=== PATIENT | male | born 1930 | race African-American/Black ===

== ENCOUNTER 2017-12-05 14:54 | Outpatient (CLI) | payer MEDICARE, MEDICAID | END 2017-12-05 14:55 | disposition home or self-care (01) | LOC: BICULT 14:54 | PROVIDERS: ATTEND Physician Assistant | DX: R60.0 Localized edema (principal) ==

== ENCOUNTER 2017-12-16 09:27 | Inpatient (IN) | payer MEDICARE, MEDICAID ==
[2017-12-16 10:00] LABS: #Eosinphils 0.1 thou/uL (0.0-0.7); #Lymphocytes 1.4 thou/uL (1.20-3.40); #Monocytes 1.2 thou/uL (0.11-0.59); #Neutrophils 5.4 thou/uL (1.40-6.50); %Basophils 0.3 % (0.0-1.0); %Eosinophils 0.9 % (0.0-10.0); %Monocytes 14.5 % (0.0-10.0); %Neutrophils 67.3 % (42.0-75.0); Hemoglobin 14.8 g/dL (14.0-18.0); Mean Corpuscular HGB CONC 33.7 g/dL (32.0-36.0); Mean Corpuscular Hemoglobin 32.9 pg (27.0-31.0); Mean Corpuscular Volume 97.4 fl (80.0-94.0); Mean Platelet Volume 7.4 fL (7.4-10.4); Platelet Count 271 thou/uL (130-400); RBC Distribution Width 11.5 % (11.5-14.5); Red Blood Cell (RBC) Count 4.52 mill/uL (4.70-6.10)
[2017-12-16 10:21] LABS: ALT (SGPT) 15 U/L (8-55); AST (SGOT) 17 U/L (5-34); Albumin 4.2 g/dL (3.4-4.8); Alkaline Phosphatase 88 U/L (40-150); Anion Gap 16 mmol/L (10-20); BUN (Urea Nitrogen) 40 mg/dL (8.4-25.7); Bilirubin, Total 0.8 mg/dL (0.2-1.2); CK (CPK) 108 U/L (30-200); Calc. Creatinine Clearance 0 mL/min (70-130); Calcium 9.3 mg/dL (7.8-10.44); Carbon Dioxide 22 mmol/L (23-31); Chloride 104 mmol/L (98-107); Estimated GFR-MDRD 8; Globulin 3.4 g/dL (2.4-3.5); Glucose 169 mg/dL (83-110); Lipase 43 U/L (8-78); Potassium 3.2 mmol/L (3.5-5.1); Protein, Total 7.6 g/dL (5.8-8.1); Sodium 139 mmol/L (136-145)
[2017-12-16 10:24] LABS: CKMB 2.5 ng/mL (0-6.6); Troponin I 0.015 ng/mL (< 0.028)
--- NOTE | 2017-12-16 11:36 | RAD ---
PORTABLE CHEST: Date: 12/16/17 HISTORY: Weakness, loss of appetite. COMPARISON: 03/03/17 study. FINDINGS: Heart size is within normal limits. There are postop sternotomy changes. The lungs are clear of infil trates. There are no signs of failure. 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 IMPRESSION: No active intrathoracic disease. Stable exam. POS: FAIZAN
[2017-12-16 13:06] LABS: ALT (SGPT) 14 U/L (8-55); AST (SGOT) 17 U/L (5-34); Alkaline Phosphatase 83 U/L (40-150); Anion Gap 15 mmol/L (10-20); BUN (Urea Nitrogen) 40 mg/dL (8.4-25.7); Bilirubin, Total 0.7 mg/dL (0.2-1.2); Calc. Creatinine Clearance 0 mL/min (70-130); Calcium 8.8 mg/dL (7.8-10.44); Carbon Dioxide 22 mmol/L (23-31); Chloride 107 mmol/L (98-107); Estimated GFR-MDRD 9; Globulin 3.1 g/dL (2.4-3.5); Glucose 194 mg/dL (83-110); Potassium 3.3 mmol/L (3.5-5.1); Protein, Total 7.1 g/dL (5.8-8.1); Sodium 141 mmol/L (136-145)
[2017-12-16] MEDS ORDERED: traMADol HCl 50 MG TAB PO PRN (13:11)
[2017-12-16] MEDS ORDERED: Ondansetron HCl/PF 4 MG/2 ML Vial IVP PRN (13:11)
[2017-12-16] MEDS ORDERED: Acetaminophen 325 MG TAB PO PRN (13:11)
[2017-12-16] MEDS ORDERED: Zolpidem Tartrate 5 MG TAB PO PRN (13:11)
[2017-12-16 13:22] LABS: Troponin I 0.027 ng/mL (< 0.028)
[2017-12-16] MEDS ORDERED: Dextrose 50% Abboject 50 ML SYRINGE SLOW IVP PRN (13:25)
[2017-12-16] MEDS ORDERED: HumaLOG 300 UNITS/3 ML VIAL SC PRN (13:25)
[2017-12-16] MEDS ORDERED: Dextrose 5% in Water 1,000 ML IV PRN (13:25)
--- NOTE | 2017-12-16 13:25 | PDOC.EVN ---
Event Note - Event Note Event Note: H&P #[id number]
--- NOTE | 2017-12-16 15:24 | CT ---
CT OF ABDOMEN AND PELVIS PERFORMED WITHOUT CONTRAST ENHANCEMENT: Date: 12/16/17 HISTORY: Abdominal pain. Loss of appetite. Patient being treated with antibiotics related to prostate. No IV c ontrast administered due to low GFR. COMPARISON: 04/06/14 study. FINDINGS: The lung bases show chronic interstitial changes in the left base. No pulmonary nodules. A hypodensity within the right lobe of the liver is stable and most compatible with a tiny cyst. Ther e are other tiny subcentimeter hypodensities within the left lobe, also statistically most likely sma ll cysts. The spleen, pancreas, and gallbladder regions appear unremarkable. Right and left adrenal glands are normal. Hypodensities involving both kidneys are compatible with cy sts. These appear stable. There are vascular calcifications noted. No definite renal calculi. No sign ificant periaortic or mesenteric adenopathy. There are moderate atherosclerotic changes of the aorta. 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 This is a stable finding. There is some mid distention of the stomach and there is some fluid within the small bowel and colon, without evidence of any wall thickening. This still could indicate a mild enteritis. CT of pelvis was performed without contrast enhancement. The appendix is normal. No adenopathy, mass, or free fluid. Review of osseous structures showed some arthritic changes of the spine and hips. IMPRESSION: 1. Some minimal fluid-filled distention of some of the small bowel, and also some fluid within the c olon. I cannot exclude this representing a mild enterocolitis. Clinical correlation would be recommen ded. 2. Moderate atherosclerotic change. 3. Stable hepatic and renal cysts. 4. Normal appendix. POS: [facility]
[2017-12-16 15:48] VITALS: BMI 21.0
--- NOTE | 2017-12-16 16:01 | HP ---
DATE OF ADMISSION: 12/16/2017 CHIEF COMPLAINT: Not feeling well. HISTORY OF PRESENT ILLNESS: This is an 87-year-old male who states that he was recently started on F kalyan and started taking approximately 4-5 days ago. The patient states that this morning he does fe lt really bad, was apparently very dizzy and decided to call the ambulance who brought him to the ER. The patient was found to have a creatinine of 7.73, on repeat was 7.23, and the decision was made t o admit the patient to the Internal Medicine team. His last creatinine was approximately in August was 1.7. The patient stated that he felt weak and dizzy, but did not fall. The patient otherwise d enies any other symptoms or complaints. No nausea, vomiting, diarrhea, constipation, chest pain, fev ers, or shortness of breath. Patient is accompanied by his [id number] and son. The patient is alert and oriented x2, so provides a very poor history. The patient's son as well is not the main ca regiver and is not aware of the exact details of patient's history; however, does state that at [facility], the patient is usually confused and not fully alert and oriented x3 at all times. The patient o therwise states that he follows up with a physician as outpatient, but cannot recall who they are. D oes bring a note from his family practice doctor, which shows that the patient takes Flomax, which wa s started recently for BPH, but also takes a multivitamin, Protonix, atorvastatin, ramipril, Coreg, P lavix, Motrin, glipizide, isosorbide dinitrate, nifedipine, and ranolazine. ALLERGIES: ASPIRIN. PAST MEDICAL HISTORY: Diabetes mellitus type 2, CKD, hypertension, hyperlipidemia, coronary artery b ypass grafting x4, coronary artery disease, anxiety and diabetic neuropathy. SOCIAL HISTORY: Denies any smoking or drinking. FAMILY HISTORY: The patient states that he is aware of any contributing family history. REVIEW OF SYSTEMS: All systems reviewed. Pertinent positive in the HPI, otherwise negative. PHYSICAL EXAMINATION: VITAL SIGNS: Blood pressure is 120/46, heart rate is 85, temperature is 98, respiratory rate is 18, pulse ox is 98% on room air. GENERAL: Lying in bed, in no acute distress. HEENT: Pupils equal, round, react to light and accommodation. Extraocular muscles intact. Oral cav ity does appear to be a little bit dry, nontender, mobile, thyroid appreciated. NECK: No lymphadenopathy in the cervical chains. CARDIOVASCULAR: Regular rate and rhythm. S1 and S2. No murmurs, rubs or gallops appreciated. PULMONARY: Clear to auscultation bilaterally, aerating well. No increase in AP diameter. ABDOMEN: Positive bowel sounds, soft, nontender. No rebound, guarding noted. EXTREMITIES: 2+ peripheral pulses. No loss of sensory function. Moving all extremities. NEUROLOGIC: Cranial nerves II-XII intact. Alert and oriented x2; however, answering some questions appropriately. The patient believes that it is 2012. LABORATORY DATA: CBC within normal limits. Basic metabolic panel shows potassium of 3.3, BUN of 40, and creatinine of 7.73, on repeat was 7.23, otherwise rest of CMP is within normal limits. CT scan of the abdomen has been ordered and is pending. ASSESSMENT: 1. Acute renal failure on chronic kidney disease. 2. Coronary artery disease. 3. Hypertension. 4. Hypokalemia. 5. Diabetes mellitus type 2. 6. Hyperlipidemia. 7. Diabetic neuropathy. 8. Secondary hyperparathyroidism of renal disease. PLAN: We will admit the patient to telemetry inpatient. Consult Nephrology. Get a renal ultrasound and bladder scan. The patient has had a Raman placed of more than 50 mL in the bladder. The patien t has received a 1 liter bolus in the ER. We will also obtain an echocardiogram to evaluate for vent ricular function, specifically the right ventricular function and check for any left or right-sided h eart failure. At this point in time, we will start the patient on normal saline at 50 mL an hour. S tart the patient on a diabetic diet. I will continue home medications as appropriate. Place patient on a sliding scale as well as a basal bolus insulin for his diabetes and check an A1c. SCDs to be u sed as venous thrombosis prophylaxis and Pepcid to be used for ulcer prophylaxis. The patient's son is at bedside who states that he will be main decision maker. After discussion, the patient is to re main FULL CODE. Otherwise, at this point in time, no other abnormalities noted concerning for dialys is. Nephrology will be consulted. Electrolyte chaudhari, the potassium at this point in time will not be replaced. We will provide the patient with a diet and repeat BMP tomorrow. The patient does not palacios ve an anion gap acidosis and significantly elevated bicarbonate levels are at 22, we will accept it. The patient otherwise understands and agrees with this plan. Again, the case and plan discussed wit h the patient and family at length. They understand and agree with this plan.
[2017-12-16] MEDS: Sodium Chloride 0.9% 1,000 ML IV SCH (16:04)
[2017-12-16 16:30] LABS: Troponin I 0.021 ng/mL (< 0.028)
--- NOTE | 2017-12-16 18:21 | ULT ---
RENAL ULTRASOUND: History: Acute renal failure. Technique: Multiple longitudinal and transverse images of the kidneys and bladder were obtained using a multihertz curvilinear transducer. FINDINGS: Real-time and color flow images demonstrate both kidneys to be visualized. The right kidney measures 10.7 and the left kidney 11.7 cm from [id number]. Both kidneys contain multiple hypoechoic lesions compatible with cysts. The largest in the right kidney measures 1.7 x 1.0 x 1.7 cm while the largest on the left measures 3.3 x 2.9 x 2.8 cm. No evidence of hydronephrosis seen. The urinary bladder is contracted due to an indwelling Raman catheter. IMPRESSION: Bilateral renal cysts without evidence of masses or lesions or evidence of hydronephrosis. The urinar y bladder is decompressed. POS: NATHALIE
[2017-12-16 18:22] LABS: Bilirubin Moderate (Negative); Blood, Urine Large (Negative); Glucose, Urine (Dipstick) Negative (Negative); Leukocyte Negative (Negative); Nitrite Negative (Negative); Protein, Urine (Dipstick) 100 mg/dL (Neg-Trace); Urobilinogen 0.2 mg/dL (0.2-1.0); pH, Urine 5.5 (5.0-9.0)
[2017-12-16 18:23] LABS: Clarity Cloudy (Clear)
[2017-12-16 18:24] LABS: Specific Gravity, Urine 1.024 (1.002-1.036)
[2017-12-16 18:25] LABS: Pathc Cast-AUWi Flag 42.97 (0-2.49); Yeast-AUWi Flag 29.6 (0-25.0)
[2017-12-16 18:28] LABS: Crystals/HPF 3+ AMORPH URATES HPF (Negative)
[2017-12-16 18:29] LABS: Bacteria/HPF None Seen HPF (None Seen)
[2017-12-16 18:30] LABS: Hyaline Casts/LPF 0-3 HYALINE CAST LPF (0-3 Hyaline); Other Casts/LPF None Seen LPF (0-3 Hyaline); Renal Epithelial None Seen HPF (0-3); Transitional Epithelial NONE SEEN HPF (0-3); Yeast-All Forms None Seen HPF (None Seen)
[2017-12-16] MEDS ORDERED: Insulin Glargine 5 UNITS in Pre-Filled Syringe 1 EACH SC SCH (21:00)
[2017-12-16] MEDS: Carvedilol 25 MG TAB PO SCH (21:31)
[2017-12-16] MEDS: Famotidine 20 MG TAB PO SCH (21:32)
[2017-12-16] MEDS: Insulin Glargine 5 UNITS in Pre-Filled Syringe 1 EACH SC SCH (21:32)
[2017-12-17 05:09] LABS: #Eosinphils 0.1 thou/uL (0.0-0.7); #Lymphocytes 1.1 thou/uL (1.20-3.40); #Monocytes 1.1 thou/uL (0.11-0.59); #Neutrophils 5.1 thou/uL (1.40-6.50); %Basophils 0.4 % (0.0-1.0); %Eosinophils 0.7 % (0.0-10.0); %Lymphocytes 14.6 % (21.0-51.0); %Monocytes 14.5 % (0.0-10.0); %Neutrophils 69.8 % (42.0-75.0); Hemoglobin 15.6 g/dL (14.0-18.0); Mean Corpuscular HGB CONC 33.1 g/dL (32.0-36.0); Mean Corpuscular Hemoglobin 32.4 pg (27.0-31.0); Mean Corpuscular Volume 97.8 fl (80.0-94.0); Mean Platelet Volume 7.5 fL (7.4-10.4); Platelet Count 290 thou/uL (130-400); RBC Distribution Width 11.8 % (11.5-14.5); Red Blood Cell (RBC) Count 4.81 mill/uL (4.70-6.10); White Blood Cell (WBC) Count 7.3 thou/uL (4.8-10.8)
[2017-12-17 05:31] LABS: Anion Gap 18 mmol/L (10-20); BUN (Urea Nitrogen) 43 mg/dL (8.4-25.7); Calc. Creatinine Clearance 5 mL/min (70-130); Calcium 8.9 mg/dL (7.8-10.44); Carbon Dioxide 17 mmol/L (23-31); Chloride 108 mmol/L (98-107); Estimated GFR-MDRD 8; Glucose 131 mg/dL (83-110); Potassium 3.4 mmol/L (3.5-5.1); Sodium 140 mmol/L (136-145)
[2017-12-17] MEDS: Carvedilol 25 MG TAB PO SCH ×2 (08:34→21:13)
[2017-12-17] MEDS: Famotidine 20 MG TAB PO SCH ×2 (08:35→21:13)
[2017-12-17] MEDS: Clopidogrel Bisulfate 75 MG TAB PO SCH (08:35)
[2017-12-17] MEDS: NIFEdipine XL 60 MG TAB PO SCH (08:36)
[2017-12-17] MEDS: Sodium Chloride 0.9% 1,000 ML IV SCH (08:37)
[2017-12-17] MEDS ORDERED: ISOSORBIDE MONONITRATE 60 MG PO SCH (09:00)
[2017-12-17] MEDS ORDERED: NIFEdipine XL 30 MG TAB PO SCH (09:00)
--- NOTE | 2017-12-17 11:02 | PDOC.PN ---
- Subjective Encounter Start Date: 12/17/17 Encounter Start Time: 11:50 Subjective: Patient reports minial UOP overnight in [place]. No other complaints. - Objective MAR Reviewed: Yes Vital Signs & Weight: Vital Signs (12 hours) Temp Pulse Resp BP Pulse Ox 12/17/17 08:36 83 12/17/17 08:00 98.4 F 83 20 98 12/17/17 07:45 98.4 F 83 20 166/72 H 98 12/17/17 03:45 99.0 F 86 20 135/61 100 12/17/17 00:00 97.6 F 88 21 H 140/62 100 Weight Weight 114 lb 6.719 oz I&O: 12/16/17 12/17/17 12/18/17 06:59 06:59 06:59 Intake Total 1336 Output Total 17 Balance 1319 Result Diagrams: 12/17/17 04:27 12/17/17 04:27 Additional Labs: Accuchecks 12/17/17 12/16/17 12/16/17 05:59 21:30 16:36 POC Glucose 120 H 147 H 140 H Phys Exam - Physical Examination Constitutional: NAD HEENT: moist MMs Respiratory: no wheezing, no rales, no rhonchi Cardiovascular: RRR, no significant murmur Gastrointestinal: soft, non-tender, positive bowel sounds Neurological: non-focal, moves all 4 limbs Psychiatric: normal affect, A&O x 3 Dx/Plan (1) Acute on chronic renal failure Code(s): N17.9 - ACUTE KIDNEY FAILURE, UNSPECIFIED; N18.9 - CHRONIC KIDNEY DISEASE, UNSPECIFIED Status: Acute Qualifiers: Chronic kidney disease stage: stage 3 (moderate) Comment: not improving with fluids, creatinine remains above 7, Dr. Wade following (2) HTN (hypertension) Code(s): I10 - ESSENTIAL (PRIMARY) HYPERTENSION Status: Chronic (3) Coronary artery disease Code(s): I25.10 - ATHSCL HEART DISEASE OF [place] CORONARY ARTERY W/O ANG PCTRS Status: Chronic (4) Diabetes mellitus type 2 in nonobese Code(s): E11.9 - TYPE 2 DIABETES MELLITUS WITHOUT COMPLICATIONS Status: Chronic (5) Hyperlipidemia Code(s): E78.5 - HYPERLIPIDEMIA, UNSPECIFIED Status: Chronic (6) Hypokalemia Code(s): E87.6 - HYPOKALEMIA Status: Acute Comment: mild - Plan cont current plan of care Patient will likely need dialysis * . - Discharge Day Encounter end time: 12:00
--- NOTE | 2017-12-17 11:30 | PRG ---
DATE OF SERVICE: 12/17/2017 SUBJECTIVE: An 87-year-old gentleman being seen for acute kidney injury. The patient denies any rebecca sea, vomiting or chest pain. PHYSICAL EXAMINATION: GENERAL: Patient is awake, alert. VITAL SIGNS: Afebrile, pulse 80, breathing 16, blood pressure 135/61. GENERAL APPEARANCE AND MENTAL STATUS: Fair. HEAD/NECK: Normocephalic. Atraumatic. EYES: EOMI. No deformity. EARS: Clear. No ulcers. NOSE: Intact. No lesions. MOUTH: Clear. No discharge. THROAT: Clear. No exudate. LUNGS: Clear. No crackles. CARDIAC: S1, S2. No rub. ABDOMEN: Benign. BS+. GENITALIA/RECTUM: Raman absent. BACK/EXTREMITIES: Edema 0+ Ulcer- NEUROLOGICAL: Alert and motor intact. SKIN: Rash- Bruise- LYMPHATICS: Edema- Ulcer- LABORATORY DATA: Showing hemoglobin 15.6, creatinine 7.6. ASSESSMENT AND RECOMMENDATIONS: 1. Acute kidney injury with chronic kidney disease due to decreased effective arterial blood volume and history of underlying chronic kidney disease, no hydronephrosis. Follow renal function serially. Continue hydration. 2. Anemia, stable. 3. Metabolic acidosis, stable. 4. Hypokalemia, stable. No indication for dialysis at this time. The patient remains anuric.
[2017-12-17] MEDS: Insulin Glargine 5 UNITS in Pre-Filled Syringe 1 EACH SC SCH (21:14)
[2017-12-18 05:08] LABS: #Lymphocytes 1.2 thou/uL (1.20-3.40); #Monocytes 0.9 thou/uL (0.11-0.59); #Neutrophils 5.6 thou/uL (1.40-6.50); %Basophils 0.2 % (0.0-1.0); %Eosinophils 0.5 % (0.0-10.0); %Lymphocytes 15.1 % (21.0-51.0); %Monocytes 11.9 % (0.0-10.0); %Neutrophils 72.3 % (42.0-75.0); Hemoglobin 14.3 g/dL (14.0-18.0); Mean Corpuscular HGB CONC 32.5 g/dL (32.0-36.0); Mean Corpuscular Hemoglobin 31.8 pg (27.0-31.0); Mean Corpuscular Volume 97.6 fl (80.0-94.0); Mean Platelet Volume 7.1 fL (7.4-10.4); Platelet Count 322 thou/uL (130-400); RBC Distribution Width 11.7 % (11.5-14.5); Red Blood Cell (RBC) Count 4.51 mill/uL (4.70-6.10); White Blood Cell (WBC) Count 7.8 thou/uL (4.8-10.8)
[2017-12-18 05:18] LABS: Anion Gap 18 mmol/L (10-20); BUN (Urea Nitrogen) 55 mg/dL (8.4-25.7); Calc. Creatinine Clearance 5 mL/min (70-130); Calcium 8.7 mg/dL (7.8-10.44); Carbon Dioxide 11 mmol/L (23-31); Chloride 113 mmol/L (98-107); Estimated GFR-MDRD 8; Glucose 159 mg/dL (83-110); Potassium 3.8 mmol/L (3.5-5.1); Sodium 138 mmol/L (136-145)
[2017-12-18] MEDS ORDERED: Calcium Carbonate 500 MG ChewTAB PO SCH (05:45)
[2017-12-18] MEDS: Sodium Chloride 0.9% 1,000 ML IV SCH (05:46)
[2017-12-18] MEDS: NIFEdipine XL 60 MG TAB PO SCH (09:03)
[2017-12-18] MEDS: Clopidogrel Bisulfate 75 MG TAB PO SCH (09:05)
[2017-12-18] MEDS: Carvedilol 25 MG TAB PO SCH ×2 (09:06→20:17)
--- NOTE | 2017-12-18 09:41 | PDOC.PN ---
- Subjective Encounter Start Date: 12/18/17 Encounter Start Time: 11:00 Subjective: Patient reports some LISA burning with radiation substernally after -: dinner last night. Happens frequently at home and better with a lot of TUMS -: , but only got a couple here last night so still with symptoms. Burping. - Objective MAR Reviewed: Yes Vital Signs & Weight: Vital Signs (12 hours) Temp Pulse Resp BP BP Pulse Ox 12/18/17 09:03 76 122/59 L 12/18/17 08:00 97.8 F 76 18 96 12/18/17 07:43 97.8 F 76 18 132/62 96 12/18/17 03:29 97.5 F L 78 20 145/65 H 98 Weight Weight 117 lb 11.629 oz I&O: 12/17/17 12/18/17 12/19/17 06:59 06:59 06:59 Intake Total 1336 1655 Output Total 17 255 Balance 1319 1400 Result Diagrams: 12/18/17 04:28 12/18/17 04:28 Additional Labs: Accuchecks 12/18/17 12/17/17 12/17/17 05:54 20:56 17:14 POC Glucose 154 H 129 H 135 H 12/17/17 11:46 POC Glucose 148 H Phys Exam - Physical Examination Constitutional: NAD HEENT: moist MMs Respiratory: no wheezing, no rales, no rhonchi, clear to auscultation bilateral Cardiovascular: RRR 2/6 SHAILESH Gastrointestinal: soft, non-tender, positive bowel sounds Musculoskeletal: no edema Neurological: non-focal, moves all 4 limbs Psychiatric: normal affect, A&O x 3 Dx/Plan (1) Acute on chronic renal failure Code(s): N17.9 - ACUTE KIDNEY FAILURE, UNSPECIFIED; N18.9 - CHRONIC KIDNEY DISEASE, UNSPECIFIED Status: Acute Qualifiers: Chronic kidney disease stage: stage 3 (moderate) Comment: not improving with fluids, creatinine remains above 7, Dr. Wade following, UOP improved a bit with 250mL out yesterday (2) HTN (hypertension) Code(s): I10 - ESSENTIAL (PRIMARY) HYPERTENSION Status: Chronic (3) Coronary artery disease Code(s): I25.10 - ATHSCL HEART DISEASE OF [place] CORONARY ARTERY W/O ANG PCTRS Status: Chronic (4) Diabetes mellitus type 2 in nonobese Code(s): E11.9 - TYPE 2 DIABETES MELLITUS WITHOUT COMPLICATIONS Status: Chronic (5) Hyperlipidemia Code(s): E78.5 - HYPERLIPIDEMIA, UNSPECIFIED Status: Chronic (6) Hypokalemia Code(s): E87.6 - HYPOKALEMIA Status: Acute Comment: mild (7) Dyspepsia Code(s): R10.13 - EPIGASTRIC PAIN Status: Acute Comment: Likely GERD. Protonix started. Can add Mylanta if not improving. - Plan cont current plan of care, DVT proph w/SCDs Will likely need dialysis * . - Discharge Day Encounter end time: 11:15
--- NOTE | 2017-12-18 11:43 | PRG ---
DATE OF SERVICE: 12/18/2017 SUBJECTIVE: A 87-year-old gentleman being seen for acute kidney injury. Patient started making urin e. Denies any nausea, vomiting or chest pain. PHYSICAL EXAMINATION: GENERAL: Patient is awake, alert. VITAL SIGNS: Afebrile, pulse 76, breathing 16, blood pressure 132/62. HEAD/NECK: Normocephalic. Atraumatic. EYES: EOMI. No deformity. EARS: Clear. No ulcers. NOSE: Intact. No lesions. MOUTH: Clear. No discharge. THROAT: Clear. No exudate. LUNGS: Clear. No crackles. CARDIAC: S1, S2. No rub. ABDOMEN: Benign. BS+. GENITALIA/RECTUM: Raman absent. BACK/EXTREMITIES: Edema 0+ Ulcer- NEUROLOGICAL: Alert and motor intact. SKIN: Rash- Bruise- LYMPHATICS: Edema- Ulcer- LABORATORY DATA: Show hemoglobin 14.2, bicarbonate 11, creatinine 7.56. ASSESSMENT AND RECOMMENDATIONS: 1. Stage 5 chronic kidney disease, acute kidney injury. The patient still remains oliguric. We kendall l recheck labs later this afternoon. 2. Metabolic acidosis. Start sodium bicarbonate. 3. Hyperkalemia, stable. 4. Medications based on glomerular filtration rate are appropriate. No urgent indication for dialys is. We will follow renal function closely.
[2017-12-18] MEDS: Sodium Bicarbonate Tab 325 MG TAB PO SCH ×2 (15:39→20:18)
[2017-12-18 16:14] LABS: Anion Gap 16 mmol/L (10-20); BUN (Urea Nitrogen) 60 mg/dL (8.4-25.7); Calc. Creatinine Clearance 6 mL/min (70-130); Calcium 8.7 mg/dL (7.8-10.44); Carbon Dioxide 15 mmol/L (23-31); Chloride 112 mmol/L (98-107); Estimated GFR-MDRD 10; Glucose 147 mg/dL (83-110); Potassium 3.9 mmol/L (3.5-5.1); Sodium 139 mmol/L (136-145)
[2017-12-18] MEDS: Famotidine 20 MG TAB PO SCH (20:16)
[2017-12-18] MEDS: Insulin Glargine 5 UNITS in Pre-Filled Syringe 1 EACH SC SCH (20:17)
[2017-12-19] MEDS: Sodium Chloride 0.9% 1,000 ML IV SCH (01:37)
[2017-12-19 05:20] LABS: #Eosinphils 0.1 thou/uL (0.0-0.7); #Lymphocytes 1.2 thou/uL (1.20-3.40); #Neutrophils 4.5 thou/uL (1.40-6.50); %Basophils 0.2 % (0.0-1.0); %Eosinophils 1.3 % (0.0-10.0); %Lymphocytes 18.2 % (21.0-51.0); %Neutrophils 66.2 % (42.0-75.0); Mean Corpuscular HGB CONC 35.6 g/dL (32.0-36.0); Mean Corpuscular Hemoglobin 34.2 pg (27.0-31.0); Mean Corpuscular Volume 96.3 fl (80.0-94.0); Platelet Count 303 thou/uL (130-400); RBC Distribution Width 11.4 % (11.5-14.5); Red Blood Cell (RBC) Count 3.79 mill/uL (4.70-6.10); White Blood Cell (WBC) Count 6.8 thou/uL (4.8-10.8)
[2017-12-19 05:35] LABS: Anion Gap 12 mmol/L (10-20); BUN (Urea Nitrogen) 58 mg/dL (8.4-25.7); Calc. Creatinine Clearance 8 mL/min (70-130); Calcium 8.3 mg/dL (7.8-10.44); Carbon Dioxide 15 mmol/L (23-31); Chloride 114 mmol/L (98-107); Estimated GFR-MDRD 14; Glucose 125 mg/dL (83-110); Potassium 3.7 mmol/L (3.5-5.1); Sodium 137 mmol/L (136-145)
[2017-12-19] MEDS: Clopidogrel Bisulfate 75 MG TAB PO SCH (09:27)
[2017-12-19] MEDS: NIFEdipine XL 60 MG TAB PO SCH (09:27)
[2017-12-19] MEDS: Sodium Bicarbonate Tab 325 MG TAB PO SCH ×3 (09:28→21:04)
[2017-12-19] MEDS: Carvedilol 25 MG TAB PO SCH ×2 (09:28→20:58)
--- NOTE | 2017-12-19 12:13 | PDOC.PN ---
- Subjective Encounter Start Date: 12/19/17 Encounter Start Time: 12:05 Subjective: f/u for JONAS/CKD III with slow improvement in renal function. No HD now. -: Feels much better today. Appetite improved. Tolerating po intake. -: No swelling, CP or SOB. - Objective MAR Reviewed: Yes Vital Signs & Weight: Vital Signs (12 hours) Temp Pulse Resp BP BP Pulse Ox 12/19/17 12:04 97.5 F L 65 16 140/64 100 12/19/17 09:27 66 116/56 L 12/19/17 09:26 66 116/56 L 12/19/17 07:25 97.6 F 71 16 110/53 L 100 12/19/17 03:27 97.8 F 75 19 124/60 100 Weight Weight 118 lb 3.814 oz I&O: 12/18/17 12/19/17 12/20/17 06:59 06:59 06:59 Intake Total 1655 2380 Output Total 255 175 Balance 1400 2205 Result Diagrams: 12/19/17 05:01 12/19/17 05:01 Additional Labs: Accuchecks 12/19/17 12/19/17 12/18/17 10:49 05:41 20:17 POC Glucose 151 H 119 H 140 H 12/18/17 16:22 POC Glucose 135 H Microbiology 12/17/17 Unknown Stool - Loose Stool Lactoferrin - Final 12/17/17 Unknown Stool C. difficile GDH Antigen & Toxins - Final Laboratory Tests 12/16/17 12/17/17 12/18/17 12:36 04:27 04:28 Carbon Dioxide 22 L 17 L 11 L Creatinine 7.23 H 7.69 H 7.56 H 12/18/17 15:22 Carbon Dioxide 15 L Creatinine 6.56 H Radiology Reviewed by me: Yes (2D echo - EF 60-65%) EKG Reviewed by me: Yes (Tele - SR in 70's) Phys Exam - Physical Examination Constitutional: NAD HEENT: PERRLA, moist MMs, sclera anicteric, oral pharynx no lesions Neck: no nodes, no JVD, supple Respiratory: no wheezing, no rales, no rhonchi, clear to auscultation bilateral Cardiovascular: RRR, no significant murmur, no rub, gallop Gastrointestinal: soft, non-tender, no distention, positive bowel sounds Musculoskeletal: no edema, pulses present Neurological: non-focal, normal sensation, moves all 4 limbs Psychiatric: normal affect, A&O x 3 Skin: no rash, normal turgor, cap refill <2 seconds Deviation from normal: Raman with leatha urine Dx/Plan (1) Acute on chronic renal failure Code(s): N17.9 - ACUTE KIDNEY FAILURE, UNSPECIFIED; N18.9 - CHRONIC KIDNEY DISEASE, UNSPECIFIED Status: Acute Qualifiers: Chronic kidney disease stage: stage 3 (moderate) Comment: Improving with low-volume IVF's and avoidance of nephrotoxic meds, continue supportive mgmt, monitor UOP, likely avoiding HD (2) HTN (hypertension) Code(s): I10 - ESSENTIAL (PRIMARY) HYPERTENSION Status: Chronic Qualifiers: Hypertension type: essential hypertension Qualified Code(s): I10 - Essential (primary) hypertension Comment: Continue current BP regimen, hold Coreg due to mild hypotension (3) Chronic kidney disease, stage 3 Status: Chronic Comment: Not currently to baseline GFR, improved renal function overall, continue IVF's (4) Coronary artery disease Code(s): I25.10 - ATHSCL HEART DISEASE OF [place] CORONARY ARTERY W/O ANG PCTRS Status: Chronic Comment: Continue Plavix and Ranexa (5) Diabetes mellitus type 2 in nonobese Code(s): E11.9 - TYPE 2 DIABETES MELLITUS WITHOUT COMPLICATIONS Status: Chronic Comment: Continue Lantus 5u sc daily, ISS, ADA - Plan plan discussed w/ family, PT/OT, social worker clinical, out of bed/ambulate, DVT proph w/SCDs Stable overall -: Continue IV NS @ 50ml/h -: Avoid nephrotoxic meds and contrast media -: PT for ambulation/mobilization -: Transfer to medical floor * AM lab: BMP, CBC
--- NOTE | 2017-12-19 13:12 | PRG ---
DATE OF SERVICE: 12/19/2017 SUBJECTIVE: This is an 87-year-old gentleman being seen for acute kidney injury. The patient denies any nausea, vomiting or chest pain. PHYSICAL EXAMINATION: GENERAL: Patient is awake and alert. VITAL SIGNS: Afebrile, pulse 101, breathing 16, blood pressure 124/60. HEAD/NECK: Normocephalic. Atraumatic. EYES: EOMI. No deformity. EARS: Clear. No ulcers. NOSE: Intact. No lesions. MOUTH: Clear. No discharge. THROAT: Clear. No exudate. LUNGS: Clear. No crackles. CARDIAC: S1, S2. No rub. ABDOMEN: Benign. BS+. GENITALIA/RECTUM: Raman absent. BACK/EXTREMITIES: Edema 0+ Ulcer- NEUROLOGICAL: Alert and motor intact. SKIN: Rash- Bruise- LYMPHATICS: Edema- Ulcer- LABORATORY DATA: Show hemoglobin 10.3, creatinine 4.9. ASSESSMENT AND RECOMMENDATIONS: 1. Acute kidney injury, improved. 2. Hypertension, stable. 3. Anemia, stable. 4. Metabolic acidosis, improved. No indication for dialysis. The patient remains oliguric. This i s acute tubular necrosis due to dehydration.
[2017-12-19] MEDS: Famotidine 20 MG TAB PO SCH (20:58)
[2017-12-19] MEDS: Atorvastatin Calcium 20 MG TAB PO SCH (20:58)
[2017-12-19] MEDS: Insulin Glargine 5 UNITS in Pre-Filled Syringe 1 EACH SC SCH (21:00)
[2017-12-20] MEDS: Sodium Chloride 0.9% 1,000 ML IV SCH ×2 (01:53→23:41)
[2017-12-20 04:04] LABS: #Eosinphils 0.1 thou/uL (0.0-0.7); #Lymphocytes 1.1 thou/uL (1.20-3.40); #Neutrophils 4.4 thou/uL (1.40-6.50); %Basophils 0.6 % (0.0-1.0); %Eosinophils 2.1 % (0.0-10.0); %Monocytes 14.6 % (0.0-10.0); %Neutrophils 65.8 % (42.0-75.0); Hemoglobin 12.2 g/dL (14.0-18.0); Mean Corpuscular HGB CONC 34.2 g/dL (32.0-36.0); Mean Corpuscular Hemoglobin 32.4 pg (27.0-31.0); Mean Corpuscular Volume 94.9 fl (80.0-94.0); Platelet Count 285 thou/uL (130-400); RBC Distribution Width 11.4 % (11.5-14.5); Red Blood Cell (RBC) Count 3.76 mill/uL (4.70-6.10); White Blood Cell (WBC) Count 6.7 thou/uL (4.8-10.8)
[2017-12-20 04:20] LABS: Anion Gap 9 mmol/L (10-20); BUN (Urea Nitrogen) 40 mg/dL (8.4-25.7); Calc. Creatinine Clearance 15 mL/min (70-130); Calcium 8.2 mg/dL (7.8-10.44); Carbon Dioxide 16 mmol/L (23-31); Chloride 113 mmol/L (98-107); Estimated GFR-MDRD 28; Glucose 100 mg/dL (83-110); Potassium 3.4 mmol/L (3.5-5.1); Sodium 135 mmol/L (136-145)
[2017-12-20] MEDS: NIFEdipine XL 60 MG TAB PO SCH (11:07)
[2017-12-20] MEDS: Clopidogrel Bisulfate 75 MG TAB PO SCH (11:08)
[2017-12-20] MEDS: Carvedilol 25 MG TAB PO SCH ×2 (11:08→21:06)
--- NOTE | 2017-12-20 11:30 | PDOC.PN ---
- Subjective Encounter Start Date: 12/20/17 Encounter Start Time: 11:25 Subjective: f/u for JONAS likely iatrogenic but improved with IVF's and modifications to -: chronic medication. No new complaints currently. Ambulated down hallway wit -: PT. Appetite good. - Objective MAR Reviewed: Yes Vital Signs & Weight: Vital Signs (12 hours) Temp Pulse Pulse Pulse Resp BP BP 12/20/17 11:07 64 154/69 H 12/20/17 10:15 67 70 167/72 H 12/20/17 09:04 75 68 167/71 H 12/20/17 04:26 98.0 F 69 16 BP BP Pulse Ox 12/20/17 11:07 12/20/17 10:15 170/73 H 12/20/17 09:04 150/68 H 12/20/17 04:26 120/58 L 97 Weight Weight 122 lb 11.2 oz I&O: 12/19/17 12/20/17 12/21/17 06:59 06:59 06:59 Intake Total 2380 2111 Output Total 175 1600 Balance 2205 511 Result Diagrams: 12/20/17 03:14 12/20/17 03:14 Additional Labs: Accuchecks 12/20/17 12/20/17 12/19/17 10:45 05:48 20:16 POC Glucose 126 H 87 111 H 12/19/17 16:43 POC Glucose 123 H Microbiology 12/17/17 Unknown Stool - Loose Stool Lactoferrin - Final 12/17/17 Unknown Stool C. difficile GDH Antigen & Toxins - Final Laboratory Tests 12/16/17 12/17/17 12/18/17 12:36 04:27 04:28 Potassium Carbon Dioxide 22 L 17 L 11 L Creatinine 7.23 H 7.69 H 7.56 H 12/18/17 12/19/17 15:22 05:01 Potassium 3.9 3.7 Carbon Dioxide 15 L 15 L Creatinine 6.56 H 4.95 H Radiology Reviewed by me: Yes (2D echo - EF 60-65%) EKG Reviewed by me: Yes (Tele - SR) Phys Exam - Physical Examination Constitutional: NAD HEENT: PERRLA, moist MMs, sclera anicteric, oral pharynx no lesions Neck: no nodes, no JVD, supple, full ROM Respiratory: no wheezing, no rales, no rhonchi, clear to auscultation bilateral Cardiovascular: RRR, no significant murmur, no rub, gallop Gastrointestinal: soft, non-tender, no distention, positive bowel sounds Musculoskeletal: no edema, pulses present Neurological: non-focal, normal sensation, moves all 4 limbs Psychiatric: normal affect, A&O x 3 Skin: no rash, normal turgor, cap refill <2 seconds Deviation from normal: [place] with leatha urine Dx/Plan (1) Acute on chronic renal failure Code(s): N17.9 - ACUTE KIDNEY FAILURE, UNSPECIFIED; N18.9 - CHRONIC KIDNEY DISEASE, UNSPECIFIED Status: Acute Qualifiers: Chronic kidney disease stage: stage 3 (moderate) Comment: Improving with low-volume IVF's and avoidance of nephrotoxic meds, continue supportive mgmt, monitor UOP, likely avoiding HD, serial creatinine (2) HTN (hypertension) Code(s): I10 - ESSENTIAL (PRIMARY) HYPERTENSION Status: Chronic Qualifiers: Hypertension type: essential hypertension Qualified Code(s): I10 - Essential (primary) hypertension Comment: Continue current BP regimen, hold Coreg due to mild hypotension (3) Chronic kidney disease, stage 3 Status: Chronic Comment: Not currently to baseline GFR, improved renal function overall, continue IVF's (4) Coronary artery disease Code(s): I25.10 - ATHSCL HEART DISEASE OF [place] CORONARY ARTERY W/O ANG PCTRS Status: Chronic Comment: Continue Plavix and Ranexa (5) Diabetes mellitus type 2 in nonobese Code(s): E11.9 - TYPE 2 DIABETES MELLITUS WITHOUT COMPLICATIONS Status: Chronic Comment: Continue Lantus 5u sc daily, ISS, ADA - Plan [place] catheter, PT/OT, social insurance analyst, out of bed/ambulate, DVT proph w/SCDs Stable overall -: Continue IV NS @ 50ml/h -: Continue Sodium Bicarbonate 650mg po TID -: OOB/ambulate with PT -: AM lab: BMP * Likely home in 24h
[2017-12-20] MEDS: Sodium Bicarbonate Tab 325 MG TAB PO SCH ×3 (11:32→21:08)
--- NOTE | 2017-12-20 11:58 | PRG ---
DATE OF SERVICE: 12/20/2017 NEPHROLOGY PROGRESS NOTE SUBJECTIVE: This is an 87-year-old gentleman being seen for acute kidney injury with improving creat inine. Patient denies any nausea, vomiting or chest pain. PHYSICAL EXAMINATION: GENERAL: Patient is awake, alert. VITAL SIGNS: Afebrile, pulse 69, breathing at 16, blood pressure 120/58. HEAD/NECK: Normocephalic. Atraumatic. EYES: EOMI. No deformity. EARS: Clear. No ulcers. NOSE: Intact. No lesions. MOUTH: Clear. No discharge. THROAT: Clear. No exudate. LUNGS: Clear. No crackles. CARDIAC: S1, S2. No rub. ABDOMEN: Benign. BS+. GENITALIA/RECTUM: Raman absent. BACK/EXTREMITIES: Edema 0+ Ulcer- NEUROLOGICAL: Alert and motor intact. SKIN: Rash- Bruise- LYMPHATICS: Edema- Ulcer- LABORATORY DATA: Show creatinine 2.67. ASSESSMENT AND RECOMMENDATIONS: 1. Acute kidney injury, improved. 2. Chronic kidney disease stage 3, improved from chronic kidney disease stage 5. 3. Anemia, stable. 4. Metabolic acidosis. Continue sodium bicarbonate. 5. Hypokalemia. Recommend high potassium diet. 6. Medications based on glomerular filtration rate are appropriate. No indication for dialysis. We will follow the patient closely.
[2017-12-20] MEDS: Atorvastatin Calcium 20 MG TAB PO SCH (21:05)
[2017-12-20] MEDS: Famotidine 20 MG TAB PO SCH (21:07)
[2017-12-20] MEDS: Insulin Glargine 5 UNITS in Pre-Filled Syringe 1 EACH SC SCH (21:14)
[2017-12-21 05:24] LABS: #Eosinphils 0.1 thou/uL (0.0-0.7); #Lymphocytes 1.3 thou/uL (1.20-3.40); #Monocytes 0.9 thou/uL (0.11-0.59); #Neutrophils 4.7 thou/uL (1.40-6.50); %Basophils 0.2 % (0.0-1.0); %Eosinophils 1.7 % (0.0-10.0); %Lymphocytes 18.9 % (21.0-51.0); %Monocytes 12.4 % (0.0-10.0); %Neutrophils 66.9 % (42.0-75.0); Hemoglobin 11.6 g/dL (14.0-18.0); Mean Corpuscular HGB CONC 34.6 g/dL (32.0-36.0); Mean Corpuscular Hemoglobin 32.7 pg (27.0-31.0); Mean Corpuscular Volume 94.3 fl (80.0-94.0); Mean Platelet Volume 6.4 fL (7.4-10.4); Platelet Count 281 thou/uL (130-400); RBC Distribution Width 11.3 % (11.5-14.5); Red Blood Cell (RBC) Count 3.56 mill/uL (4.70-6.10)
[2017-12-21 05:51] LABS: Anion Gap 8 mmol/L (10-20); BUN (Urea Nitrogen) 27 mg/dL (8.4-25.7); Calc. Creatinine Clearance 26 mL/min (70-130); Calcium 8.2 mg/dL (7.8-10.44); Carbon Dioxide 21 mmol/L (23-31); Chloride 113 mmol/L (98-107); Estimated GFR-MDRD 49; Glucose 94 mg/dL (83-110); Potassium 3.3 mmol/L (3.5-5.1); Sodium 139 mmol/L (136-145)
[2017-12-21 07:22] VITALS: TEMP 97.9
[2017-12-21] MEDS: Sodium Bicarbonate Tab 325 MG TAB PO SCH (08:49)
[2017-12-21] MEDS: NIFEdipine XL 60 MG TAB PO SCH (08:50)
[2017-12-21] MEDS: Clopidogrel Bisulfate 75 MG TAB PO SCH (08:50)
[2017-12-21] MEDS: Carvedilol 25 MG TAB PO SCH (08:50)
--- NOTE | 2017-12-21 11:46 | PRG ---
DATE OF SERVICE: 12/21/2017 SUBJECTIVE: This is an 87-year-old male being seen for acute kidney injury. The patient denies any nausea, vomiting, or chest pain. PHYSICAL EXAMINATION: GENERAL: Awake, alert. VITAL SIGNS: Afebrile, pulse 82, breathing 16, blood pressure 159/73. OBJECTIVE: See above. Awake, alert, in no acute distress. GENERAL APPEARANCE AND MENTAL STATUS: Fair. HEAD/NECK: Normocephalic. Atraumatic. EYES: EOMI. No deformity. EARS: Clear. No ulcers. NOSE: Intact. No lesions. MOUTH: Clear. No discharge. THROAT: Clear. No exudate. LUNGS: Clear. No crackles. CARDIAC: S1, S2. No rub. ABDOMEN: Benign. BS+. GENITALIA/RECTUM: Raman absent. BACK/EXTREMITIES: Edema 0+ Ulcer- NEUROLOGICAL: Alert and motor intact. SKIN: Rash- Bruise- LYMPHATICS: Edema- Ulcer- LABORATORY DATA: Hemoglobin 11.6, bicarbonate 21, potassium 3.3, creatinine 1.6. ASSESSMENT AND RECOMMENDATIONS: 1. Acute kidney injury, improved. Patient had acute tubular necrosis due to dehydration. 2. Hypokalemia. Recommend high potassium diet. 3. Metabolic acidosis, improved. Stop sodium bicarbonate. 4. Hypertension. Titrate blood pressure medicines. No indication for dialysis at this time. The patient can follow up to see me in 1-2 weeks.
[2017-12-21 12:29] VITALS: BP 169/79
== END 2017-12-21 13:23 | disposition home health service (06) | DRG 683 ==
LOC: ERS 09:27 → 2NO 15:23 → T4-B 12-20 18:39
PROVIDERS: ADMIT Hospitalist; ATTEND Hospitalist
DX: N17.9 Acute kidney failure, unspecified (principal); E87.2 Acidosis; I12.0 Hypertensive chronic kidney disease with stage 5 chronic kidney disease or end stage renal disease; E87.6 Hypokalemia; I25.10 Atherosclerotic heart disease of native coronary artery without angina pectoris; E11.22 Type 2 diabetes mellitus with diabetic chronic kidney disease; Z79.4 Long term (current) use of insulin; D64.9 Anemia, unspecified; N17.0 Acute kidney failure with tubular necrosis; E86.0 Dehydration; N18.5 Chronic kidney disease, stage 5; E78.5 Hyperlipidemia, unspecified; R10.13 Epigastric pain; E11.40 Type 2 diabetes mellitus with diabetic neuropathy, unspecified
CPT/HCPCS: 36415; 36416; 71045; 74176; 76770; 80048; 80053; 81001; 82550; 82553; 83605; 83630; 83690; 83880; 83970; 84484; 85025; 87324; 87449; 93005; 93306; 96360; 96361; A4216; G8978-GP-CK; G8979-GP-CJ; G8987-GO-CJ; G8988-GO-CI; J2405

== ENCOUNTER 2018-01-04 02:29 | Inpatient (IN) | payer MEDICARE, MEDICAID ==
[2018-01-04 02:59] LABS: #Basophils 0.1 thou/uL (0.0-0.2); #Eosinphils 0.2 thou/uL (0.0-0.7); #Lymphocytes 1.7 thou/uL (1.20-3.40); #Monocytes 1.1 thou/uL (0.11-0.59); #Neutrophils 15.9 thou/uL (1.40-6.50); %Basophils 0.3 % (0.0-1.0); %Lymphocytes 8.8 % (21.0-51.0); %Monocytes 5.7 % (0.0-10.0); %Neutrophils 84.2 % (42.0-75.0); Hemoglobin 11.3 g/dL (14.0-18.0); Mean Corpuscular HGB CONC 33.8 g/dL (32.0-36.0); Mean Corpuscular Hemoglobin 33.2 pg (27.0-31.0); Mean Corpuscular Volume 98.1 fl (80.0-94.0); Mean Platelet Volume 7.3 fL (7.4-10.4); Platelet Count 253 thou/uL (130-400); RBC Distribution Width 12.3 % (11.5-14.5); Red Blood Cell (RBC) Count 3.42 mill/uL (4.70-6.10); White Blood Cell (WBC) Count 18.8 thou/uL (4.8-10.8)
[2018-01-04 03:24] LABS: CKMB 1.2 ng/mL (0-6.6); Troponin I Less than 0.010 ng/mL (< 0.028)
[2018-01-04 03:26] LABS: ALT (SGPT) 33 U/L (8-55); AST (SGOT) 40 U/L (5-34); Albumin 3.8 g/dL (3.4-4.8); Alkaline Phosphatase 94 U/L (40-150); Anion Gap 14 mmol/L (10-20); BUN (Urea Nitrogen) 18 mg/dL (8.4-25.7); Bilirubin, Total 0.8 mg/dL (0.2-1.2); CK (CPK) 75 U/L (30-200); Calc. Creatinine Clearance 0 mL/min (70-130); Carbon Dioxide 28 mmol/L (23-31); Chloride 106 mmol/L (98-107); Estimated GFR-MDRD 53; Globulin 2.6 g/dL (2.4-3.5); Glucose 147 mg/dL (83-110); Potassium 3.5 mmol/L (3.5-5.1); Protein, Total 6.4 g/dL (5.8-8.1); Sodium 144 mmol/L (136-145)
[2018-01-04] MEDS ORDERED: methylPREDNISolone Sod Succ/PF 125 MG/2 ML VIAL ONE (03:30)
[2018-01-04] MEDS ORDERED: cefTRIAXone\\ROCEPHIN 2 GM VIAL ONE (03:30)
[2018-01-04] MEDS ORDERED: hydrALAZINE 20 MG/ML VIAL SLOW IVP PRN (03:57)
[2018-01-04] MEDS ORDERED: Azithromycin 500 MG VIAL ONE (04:12)
[2018-01-04] MEDS ORDERED: Furosemide 40 MG/4 ML VIAL ONE (04:12)
[2018-01-04 06:03] VITALS: BMI 23.0
--- NOTE | 2018-01-04 08:16 | RAD ---
PORTABLE AP CHEST XRAY: DATE: 01/04/18. HISTORY: Difficulty breathing on CPAP. Dyspnea. COMPARISON: 12/16/17. FINDINGS: There has been interval development of interstitial and alveolar opacities at the right lung base as well as interstitial densities at the left lung base. Findings may be related to aspiration pneumoni tis, pneumonia, or hemorrhage. Cardiac silhouette is magnified by projection. Pulmonary vasculature is within normal limits. Postsurgical changes related to CABG are again present. Intraarticular loose bodies are partially imaged overlying the right shoulder with right glenohumeral osteoarthropathy present. No other interval change. IMPRESSION: Interval development of interstitial and alveolar opacities at the right lung base as well as interst itial densities at the left lung base. Findings may be related to aspiration pneumonia or infectious process and possibly atypical pneumonia. Followup to complete resolution is recommended. POS: [facility]ATHALIE
[2018-01-04] MEDS ORDERED: Prevnar 13-Val Conj/PF 0.5 ML SYRINGE IM ONE ×2 (09:00→10:00)
[2018-01-04] MEDS ORDERED: Acetaminophen 325 MG TAB PO PRN (11:58)
[2018-01-04] MEDS ORDERED: Dextrose 5% in Water 1,000 ML IV PRN (14:00)
[2018-01-04] MEDS ORDERED: HumaLOG 300 UNITS/3 ML VIAL SC PRN (14:00)
[2018-01-04] MEDS ORDERED: Dextrose 50% Abboject 50 ML SYRINGE IVP PRN (14:00)
[2018-01-04] MEDS: HumaLOG 300 UNITS/3 ML VIAL SC PRN ×2 (14:29→16:41)
[2018-01-05] MEDS: Enoxaparin Sodium 30 MG/0.3 ML SYRINGE SC SCH (08:41)
[2018-01-05] MEDS ORDERED: Polyethylene Glycol 3350 17 GM Packet PO PRN (10:12)
[2018-01-05] MEDS ORDERED: Clopidogrel Bisulfate 75 MG TAB PO SCH (10:15)
[2018-01-05] MEDS: Carvedilol 25 MG TAB PO SCH (16:08)
[2018-01-05 17:05] LABS: CKMB 0.9 ng/mL (0-6.6); Troponin I Less than 0.010 ng/mL (< 0.028)
--- NOTE | 2018-01-05 18:18 | PDOC.PN ---
- Subjective Encounter Start Date: 01/05/18 Encounter Start Time: 10:15 Patient seen and examined for respiratory failure. SOB improving. Some cough with mild production. No other complaints. No overnight events - Objective Resuscitation Status: Resuscitation Status FULL:Full Resuscitation MAR Reviewed: Yes Vital Signs & Weight: Vital Signs (12 hours) Temp Pulse Resp BP BP Pulse Ox 01/05/18 15:27 98.6 F 84 18 175/76 H 98 01/05/18 13:57 84 15 98 01/05/18 12:30 92 L 01/05/18 11:04 98.7 F 81 16 145/63 H 94 L 01/05/18 10:11 78 16 92 L 01/05/18 08:45 98.1 F 72 16 95 01/05/18 07:38 98.1 F 72 16 158/76 H 92 L Weight Weight 130 lb 3.2 oz I&O: 01/04/18 01/05/18 01/06/18 06:59 06:59 06:59 Intake Total 390 1750 1500 Output Total 150 2125 700 Balance 240 -375 800 Result Diagrams: 01/06/18 04:23 01/07/18 04:12 Additional Labs: Accuchecks 01/05/18 01/05/18 01/05/18 16:28 10:26 05:36 POC Glucose 135 H 183 H 134 H 01/04/18 20:36 POC Glucose 197 H Radiology Reviewed by me: Yes (CXR - atypical pneumonia) EKG Reviewed by me: Yes (Tele SR) Phys Exam - Physical Examination Constitutional: NAD Neck: no JVD Respiratory: no rhonchi, wheezing present (scat) Bibasilar rales, Symmetrical, Mild accessory muscle use Cardiovascular: RRR, no rub no heaves/pulsations Gastrointestinal: soft, non-tender, no distention, positive bowel sounds Musculoskeletal: no edema Neurological: non-focal, normal sensation, moves all 4 limbs Psychiatric: A&O x 3 Dx/Plan (1) Acute hypoxemic respiratory failure Code(s): J96.01 - ACUTE RESPIRATORY FAILURE WITH HYPOXIA Status: Acute Comment: due to COPD exacerbation (2) Pneumonia Code(s): J18.9 - PNEUMONIA, UNSPECIFIED ORGANISM Status: Acute Comment: ? Pneumococcus (3) DM2 (diabetes mellitus, type 2) Status: Chronic Qualifiers: Chronic kidney disease stage: stage 3 (moderate) (4) HTN (hypertension) Code(s): I10 - ESSENTIAL (PRIMARY) HYPERTENSION Status: Chronic Qualifiers: Hypertension type: essential hypertension Qualified Code(s): I10 - Essential (primary) hypertension - Plan continue antibiotics, DVT proph w/lovenox, DVT proph w/SCDs Cont Nebs/O2/Levaquin -: Cont Glipizide, Coreg, Gabapentin and other meds as below -: AM labs -: Cont to monitor -: Hold steroids for now Review of Systems - Review of Systems Constitutional: negative: fever, chills, sweats, weakness, malaise, other Cardiovascular: negative: chest pain, palpitations, orthopnea, paroxysmal nocturnal dyspnea, edema, light headedness, other - Medications/Allergies Allergies/Adverse Reactions: Allergies Allergy/AdvReac Type Severity Reaction Status Date / Time lisinopril Allergy Verified 01/04/18 05:51 Medications: Current Medications Acetaminophen (Tylenol) 650 mg PO Q4H PRN PRN Reason: Headache/Fever or Pain Hydrocodone Bitart/Acetaminophen ([place] 5/325) 1 tab PO Q4H PRN PRN Reason: Moderate Pain (4-6) Albuterol/Ipratropium (Duoneb) 3 ml NEB [id number] [facility] Last Admin: 01/05/18 13:57 Dose: 3 ml Albuterol/Ipratropium (Duoneb) 3 ml NEB Q2H PRN PRN Reason: SOB &/or Wheezing Atorvastatin Calcium (Lipitor) 20 mg PO HS [facility] Carvedilol (Coreg) 12.5 mg PO BID-WM [facility] Last Admin: 01/05/18 16:08 Dose: 12.5 mg Clopidogrel Bisulfate (Plavix) 75 mg PO DAILY [facility] Dextrose/Water (Dextrose 50%) 25 gm IVP PRN PRN PRN Reason: HYPOGLYCEMIA PROTOCOL Enoxaparin Sodium (Lovenox) 30 mg SC 0900 [facility] Last Admin: 01/05/18 08:41 Dose: 30 mg Gabapentin (Neurontin) 100 mg PO HS [facility] Glipizide (Glucotrol Xl) 5 mg PO QAM-WM [facility] Glucagon (Glucagon) 1 mg IM PRN PRN PRN Reason: HYPOGLYCEMIA PROTOCOL Hydralazine HCl (Apresoline) 10 mg SLOW IVP Q4H PRN PRN Reason: SBP Greater Than 180 Levofloxacin 500 mg/ Device 100 mls @ 100 mls/hr IVPB Q24HR [facility] Last Admin: 01/05/18 14:53 Dose: 100 mls Dextrose/Water (D5w) 1,000 mls @ 0 mls/hr IV INF PRN; As Directed PRN Reason: HYPOGLYCEMIA PROTOCOL Insulin Human Lispro (Humalog) 0 units SC .MILD SLIDING SCALE PRN; Protocol PRN Reason: MILD SLIDING SCALE Last Admin: 01/04/18 16:41 Dose: 5 unit Insulin Human Lispro (Humalog) 0 units SC .BEDTIME SLIDING SC PRN; Protocol PRN Reason: BEDTIME SLIDING SCALE Isosorbide Mononitrate (Imdur) 60 mg PO DAILY [facility] Nifedipine (Procardia Xl) 30 mg PO DAILY [facility] Pantoprazole Sodium (Protonix) 40 mg PO DAILY [facility] Polyethylene Glycol (Miralax) 17 gm PO DAILY PRN PRN Reason: Constipation Sodium Chloride (Flush - Normal Saline) 10 ml IVF Q12HR [facility] Sodium Chloride (Flush - Normal Saline) 10 ml IVF PRN PRN PRN Reason: Saline Flush
[2018-01-05] MEDS: Atorvastatin Calcium 20 MG TAB PO SCH (20:04)
[2018-01-05] MEDS: HYDROcodone/Acetaminophen 5/325 mg Tablet PO PRN (20:05)
[2018-01-05] MEDS: Gabapentin 100 MG CAP PO SCH (20:05)
[2018-01-06 04:47] LABS: #Eosinphils 0.1 thou/uL (0.0-0.7); #Lymphocytes 1.4 thou/uL (1.20-3.40); #Neutrophils 8.4 thou/uL (1.40-6.50); %Basophils 0.3 % (0.0-1.0); %Eosinophils 1.3 % (0.0-10.0); %Lymphocytes 12.6 % (21.0-51.0); %Monocytes 8.8 % (0.0-10.0); %Neutrophils 77.1 % (42.0-75.0); Hemoglobin 10.5 g/dL (14.0-18.0); Mean Corpuscular HGB CONC 32.7 g/dL (32.0-36.0); Mean Corpuscular Volume 97.8 fl (80.0-94.0); Mean Platelet Volume 7.6 fL (7.4-10.4); Platelet Count 245 thou/uL (130-400); RBC Distribution Width 12.2 % (11.5-14.5); Red Blood Cell (RBC) Count 3.28 mill/uL (4.70-6.10); White Blood Cell (WBC) Count 10.9 thou/uL (4.8-10.8)
[2018-01-06 05:16] LABS: Anion Gap 11 mmol/L (10-20); BUN (Urea Nitrogen) 16 mg/dL (8.4-25.7); Calc. Creatinine Clearance 33 mL/min (70-130); Calcium 8.7 mg/dL (7.8-10.44); Carbon Dioxide 31 mmol/L (23-31); Chloride 103 mmol/L (98-107); Estimated GFR-MDRD 59; Glucose 107 mg/dL (83-110); Potassium 3.4 mmol/L (3.5-5.1); Sodium 142 mmol/L (136-145)
[2018-01-06] MEDS: NIFEdipine XL 30 MG TAB PO SCH (08:28)
[2018-01-06] MEDS: Carvedilol 25 MG TAB PO SCH ×2 (08:30→17:41)
[2018-01-06] MEDS: Clopidogrel Bisulfate 75 MG TAB PO SCH (08:31)
[2018-01-06] MEDS: Enoxaparin Sodium 30 MG/0.3 ML SYRINGE SC SCH (08:31)
[2018-01-06] MEDS ORDERED: ISOSORBIDE MONONITRATE 60 MG PO SCH (09:00)
--- NOTE | 2018-01-06 09:29 | RAD ---
CHEST 2 VIEWS: HISTORY: Dyspnea. COMPARISON: 01/04/18. FINDINGS: Cardiac silhouette and pulmonary vasculature are unremarkable. Patchy infiltrate at the right luggage liner ior lung base is unchanged. A small amount of bilateral pleural fluid is now evident. Lungs are oth erwise hyperinflated. Mediastinum midline with aortic calcification and postoperative changes. No e vidence of pneumothorax. Prominent degenerative changes right shoulder. IMPRESSION: 1. Right basilar infiltrate is unchanged. A small amount of pleural fluid is now apparent. 2. Other findings are stable. POS: [facility]
[2018-01-06] MEDS ORDERED: Potassium Chloride 20 MEQ TAB PO SCH (10:15)
[2018-01-06] MEDS: HumaLOG 300 UNITS/3 ML VIAL SC PRN (10:46)
--- NOTE | 2018-01-06 12:24 | PDOC.PN ---
- Subjective Encounter Start Date: 01/06/18 Encounter Start Time: 12:23 Patient seen and examined for Pneumonia. Mild SOB on exertion. No new complaints. No overnight events - Objective Resuscitation Status: Resuscitation Status FULL:Full Resuscitation MAR Reviewed: Yes Vital Signs & Weight: Vital Signs (12 hours) Temp Pulse Resp BP BP BP Pulse Ox 01/06/18 11:49 98.5 F 61 16 129/57 L 94 L 01/06/18 10:34 81 16 96 01/06/18 08:28 87 157/60 H 01/06/18 08:00 98.8 F 87 14 157/60 H 95 01/06/18 07:07 87 14 97 01/06/18 05:15 82 154/63 H 01/06/18 04:11 100 01/06/18 03:25 97.2 F L 67 20 174/74 H 95 Weight Weight 132 lb 14.4 oz I&O: 01/05/18 01/06/18 01/07/18 06:59 06:59 06:59 Intake Total 1750 2020 360 Output Total 2125 1400 Balance -375 620 360 Result Diagrams: 01/06/18 04:23 01/07/18 04:12 Additional Labs: Accuchecks 01/06/18 01/06/18 01/05/18 10:40 05:01 20:27 POC Glucose 171 H 107 183 H 01/05/18 16:28 POC Glucose 135 H Microbiology 01/04/18 03:15 Venous blood - Right Arm Blood Culture - Preliminary Specimen has been received and culture in progress. No Growth to date. 01/04/18 03:11 Venous blood - Left Arm Blood Culture - Preliminary Specimen has been received and culture in progress. No Growth to date. Laboratory Tests 01/04/18 06:38 Troponin I 0.010 Radiology Reviewed by me: Yes (CXR - Pneumonia) EKG Reviewed by me: Yes (Tele SR) Phys Exam - Physical Examination Constitutional: NAD Respiratory: no rales, wheezing present (scat, Bibasilar rales) Cardiovascular: RRR, no rub Gastrointestinal: soft, non-tender, positive bowel sounds Musculoskeletal: no edema Neurological: moves all 4 limbs Dx/Plan (1) Acute hypoxemic respiratory failure Code(s): J96.01 - ACUTE RESPIRATORY FAILURE WITH HYPOXIA Status: Acute Comment: due to COPD exacerbation (2) Pneumonia Code(s): J18.9 - PNEUMONIA, UNSPECIFIED ORGANISM Status: Acute Comment: ? Pneumococcus (3) DM2 (diabetes mellitus, type 2) Status: Chronic Qualifiers: Chronic kidney disease stage: stage 3 (moderate) (4) HTN (hypertension) Code(s): I10 - ESSENTIAL (PRIMARY) HYPERTENSION Status: Chronic Qualifiers: Hypertension type: essential hypertension Qualified Code(s): I10 - Essential (primary) hypertension (5) Hypokalemia Code(s): E87.6 - HYPOKALEMIA Status: Acute - Plan DVT proph w/SCDs Cont Levaquin, Add Doxy -: Transfer to medical, Cont current meds as below -: Probably dc in AM if stable, Will access the need for O2 -: DC fluid restriction - no h/o CHF -: Replace Potassium, Check Potassium in AM Review of Systems - Review of Systems Respiratory: Cough, SOB with Excertion, Wheezing (minimal) Cardiovascular: negative: chest pain, palpitations, orthopnea, paroxysmal nocturnal dyspnea, edema, light headedness, other - Medications/Allergies Allergies/Adverse Reactions: Allergies Allergy/AdvReac Type Severity Reaction Status Date / Time lisinopril Allergy Verified 01/04/18 05:51 Medications: Current Medications Acetaminophen (Tylenol) 650 mg PO Q4H PRN PRN Reason: Headache/Fever or Pain Hydrocodone Bitart/Acetaminophen ([place] 5/325) 1 tab PO Q4H PRN PRN Reason: Moderate Pain (4-6) Last Admin: 01/05/18 20:05 Dose: 1 tab Albuterol/Ipratropium (Duoneb) 3 ml NEB [id number] [facility] Last Admin: 01/06/18 10:34 Dose: 3 ml Albuterol/Ipratropium (Duoneb) 3 ml NEB Q2H PRN PRN Reason: SOB &/or Wheezing Atorvastatin Calcium (Lipitor) 20 mg PO HS [facility] Last Admin: 01/05/18 20:04 Dose: 20 mg Carvedilol (Coreg) 12.5 mg PO BID-WM [facility] Last Admin: 01/06/18 08:30 Dose: 12.5 mg Clopidogrel Bisulfate (Plavix) 75 mg PO DAILY [facility] Last Admin: 01/06/18 08:31 Dose: 75 mg Dextrose/Water (Dextrose 50%) 25 gm IVP PRN PRN PRN Reason: HYPOGLYCEMIA PROTOCOL Doxycycline Hyclate (Vibramycin) 100 mg PO BID [facility] Enoxaparin Sodium (Lovenox) 30 mg SC 0900 [facility] Last Admin: 01/06/18 08:31 Dose: 30 mg Gabapentin (Neurontin) 100 mg PO HS [facility] Last Admin: 01/05/18 20:05 Dose: 100 mg Glipizide (Glucotrol Xl) 5 mg PO QAM-WM [facility] Last Admin: 01/06/18 08:28 Dose: 5 mg Glucagon (Glucagon) 1 mg IM PRN PRN PRN Reason: HYPOGLYCEMIA PROTOCOL Hydralazine HCl (Apresoline) 10 mg SLOW IVP Q4H PRN PRN Reason: SBP Greater Than 180 Last Admin: 01/06/18 03:53 Dose: 10 mg Levofloxacin 500 mg/ Device 100 mls @ 100 mls/hr IVPB Q24HR [facility] Last Admin: 01/05/18 14:53 Dose: 100 mls Dextrose/Water (D5w) 1,000 mls @ 0 mls/hr IV INF PRN; As Directed PRN Reason: HYPOGLYCEMIA PROTOCOL Insulin Human Lispro (Humalog) 0 units SC .MILD SLIDING SCALE PRN; Protocol PRN Reason: MILD SLIDING SCALE Last Admin: 01/06/18 10:46 Dose: 2 unit Insulin Human Lispro (Humalog) 0 units SC .BEDTIME SLIDING SC PRN; Protocol PRN Reason: BEDTIME SLIDING SCALE Isosorbide Mononitrate (Imdur) 60 mg PO DAILY [facility] Last Admin: 01/06/18 08:31 Dose: 60 mg Nifedipine (Procardia Xl) 30 mg PO DAILY [facility] Last Admin: 01/06/18 08:28 Dose: 30 mg Pantoprazole Sodium (Protonix) 40 mg PO DAILY [facility] Last Admin: 01/06/18 08:28 Dose: 40 mg Polyethylene Glycol (Miralax) 17 gm PO DAILY PRN PRN Reason: Constipation Sodium Chloride (Flush - Normal Saline) 10 ml IVF Q12HR [facility] Last Admin: 01/06/18 08:31 Dose: 10 ml Sodium Chloride (Flush - Normal Saline) 10 ml IVF PRN PRN PRN Reason: Saline Flush Last Admin: 01/06/18 03:53 Dose: 10 ml
[2018-01-06] MEDS: HYDROcodone/Acetaminophen 5/325 mg Tablet PO PRN (13:14)
[2018-01-06] MEDS: Gabapentin 100 MG CAP PO SCH (20:52)
[2018-01-06] MEDS: Atorvastatin Calcium 20 MG TAB PO SCH (20:52)
[2018-01-06] MEDS: Doxycycline 100 MG CAP PO SCH (20:53)
[2018-01-07 04:59] LABS: Potassium 3.4 mmol/L (3.5-5.1)
[2018-01-07] MEDS: Doxycycline 100 MG CAP PO SCH (08:47)
[2018-01-07] MEDS: NIFEdipine XL 30 MG TAB PO SCH (08:48)
[2018-01-07] MEDS: Clopidogrel Bisulfate 75 MG TAB PO SCH (08:48)
[2018-01-07] MEDS: Carvedilol 25 MG TAB PO SCH (08:48)
[2018-01-07 12:13] VITALS: BP 138/54; TEMP 98.5
[2018-01-07] MEDS ORDERED: Potassium Chloride 20 MEQ TAB PO SCH (13:30)
--- NOTE | 2018-01-08 09:27 | DIS ---
DATE OF DISCHARGE: 01/07/2018 DISCHARGE DISPOSITION: Home. FOLLOWUP: Follow up with primary care physician, Dr. Rodas in 1 week. Rolling walker will be radha white. Home health care through [facility] will be arranged. ALLERGIES: LISINOPRIL. The patient was seen and examined on the day of discharge, denies any new complaints, feels symptomat ically much better. SIGNIFICANT LABORATORY: 1. WBC on admission 18.8. Two days later was 10.9. Potassium 3.4, replaced. Creatinine 1.38. 2. Troponins were normal. 3. BNP was 509 4. Blood cultures were negative. 5. Chest x-ray showed infiltrate at the right base. BRIEF HOSPITAL COURSE: The patient is an 87-year-old male with recent COPD exacerbation, presented t o the hospital with shortness of breath. He was hypoxic in the 70s in the emergency room. He was st arted on noninvasive positive pressure ventilation. Please refer to the ER documentation as well as history and physical for further details. The patient was admitted to the hospital with a diagnosis of acute hypoxic respiratory failure second james to pneumonia with mild COPD exacerbation. He showed good improvement with oxygen, nebulizer nancy tments as well as antibiotics. He did not require any steroids. His wheezing has significantly impr chelsy. His BNP around 500. His echocardiogram last month showed normal EF without any diastolic dysf unction. Home oxygen as well as Home Health Care will be arranged. The patient appears stable for d ischarge. He will be discharged home on Levaquin 500 mg daily for the next 5 days. All other home medications were resumed. A prescription for nebulizer treatment was also provided. FINAL DIAGNOSES: 1. Acute hypoxic respiratory failure. 2. Healthcare-associated pneumonia, suspected Pneumococcus. 3. Diabetes mellitus type 2. 4. Hypokalemia. 5. Mild chronic obstructive pulmonary disease exacerbation. 6. History of chronic obstructive pulmonary disease. 7. Lisinopril allergy. Plan of care was discussed with the patient in detail. He stated understanding.
--- NOTE | 2018-01-09 14:48 | EKG ---
Test Reason : DYSPNEA Blood Pressure : / mmHG Vent. Rate : 078 BPM Atrial Rate : 078 BPM P-R Int : 150 ms QRS Dur : 088 ms QT Int : 410 ms P-R-T Axes : 044 051 036 degrees QTc Int : 467 ms Normal sinus rhythm Confirmed by LAN LOZOYA ([id number]), newspaper or periodical editor ORIANA SANDERSNO ([id number] on 01/09/2018 2:48:16 PM Referred By: DO LOZOYA Confirmed By:LAN LOZOYA
== END 2018-01-07 15:45 | disposition home health service (06) | DRG 193 ==
LOC: ERS 02:29 → 2SE 04:17
PROVIDERS: ADMIT Internal Medicine; ATTEND Internal Medicine
PROC: 5A09357 Assistance with Respiratory Ventilation, Less than 24 Consecutive Hours, Continuous Positive Airway Pressure (ICD-10-PCS; principal; 2018-01-04)
DX: J13 Pneumonia due to Streptococcus pneumoniae (principal); J96.01 Acute respiratory failure with hypoxia; J44.1 Chronic obstructive pulmonary disease with (acute) exacerbation; J44.0 Chronic obstructive pulmonary disease with (acute) lower respiratory infection; E11.22 Type 2 diabetes mellitus with diabetic chronic kidney disease; I12.9 Hypertensive chronic kidney disease with stage 1 through stage 4 chronic kidney disease, or unspecified chronic kidney disease; N18.3 Chronic kidney disease, stage 3 (moderate); E87.6 Hypokalemia; Z88.8 Allergy status to other drugs, medicaments and biological substances; Y95 Nosocomial condition
CPT/HCPCS: 36415; 36416; 71045; 71046; 80048; 80053; 82553; 83605; 83880; 84132; 84484; 85025; 87040; 90471; 90670; 93005; 94640; 96365; 96367; 96375; A4216; G0009; J0360; J0456; J0696; J1650; J1940; J1956; J2930; J7620

== ENCOUNTER 2018-01-25 10:33 | Outpatient (CLI) | payer MEDICARE, MEDICAID ==
--- NOTE | 2018-01-25 15:41 | NM ---
WHOLE BODY BONE SCAN: 01/25/18 INDICATION: Prostate cancer. COMPARISON: Prior exam dated October 2013. RADIOPHARMACEUTICAL: 30 millicuries technetium 99m MDP IV. FINDINGS: There is degenerative activity involving the sternoclavicular joints, shoulders, hips, knees, and fee t. There is mild activity involving the maxilla and mandible likely related to some periodontal disea se. No suspicious scintigraphic radiotracer accumulation is present. IMPRESSION: No definite scintigraphic evidence of osteoblastic metastatic lesion.. POS: [facility]
== END 2018-01-25 10:34 | disposition home or self-care (01) ==
LOC: NM 10:33
PROVIDERS: ATTEND Urology
DX: C61 Malignant neoplasm of prostate (principal); N18.3 Chronic kidney disease, stage 3 (moderate); R31.0 Gross hematuria; R97.20 Elevated prostate specific antigen [PSA]
CPT/HCPCS: 78306; A9503

== ENCOUNTER 2018-02-13 04:39 | Inpatient (IN) | payer MEDICARE, MEDICAID ==
[2018-02-13 05:10] LABS: #Eosinphils 0.1 thou/uL (0.0-0.7); #Lymphocytes 1.6 thou/uL (1.20-3.40); #Monocytes 0.7 thou/uL (0.11-0.59); #Neutrophils 6.3 thou/uL (1.40-6.50); %Basophils 0.2 % (0.0-1.0); %Eosinophils 1.6 % (0.0-10.0); %Lymphocytes 18.2 % (21.0-51.0); %Monocytes 8.2 % (0.0-10.0); %Neutrophils 71.7 % (42.0-75.0); Hemoglobin 12.4 g/dL (14.0-18.0); Mean Corpuscular HGB CONC 33.1 g/dL (32.0-36.0); Mean Corpuscular Hemoglobin 31.6 pg (27.0-31.0); Mean Corpuscular Volume 95.4 fL (78.0-98.0); Mean Platelet Volume 7.5 fL (7.4-10.4); Platelet Count 216 thou/uL (130-400); Red Blood Cell (RBC) Count 3.93 mill/uL (4.70-6.10); White Blood Cell (WBC) Count 8.7 thou/uL (4.8-10.8)
[2018-02-13 05:25] LABS: ALT (SGPT) 28 U/L (8-55); AST (SGOT) 34 U/L (5-34); Albumin 4.2 g/dL (3.4-4.8); Alkaline Phosphatase 101 U/L (40-150); Anion Gap 12 mmol/L (10-20); BUN (Urea Nitrogen) 19 mg/dL (8.4-25.7); Bilirubin, Total 0.6 mg/dL (0.2-1.2); Calc. Creatinine Clearance 0 mL/min (70-130); Calcium 9.2 mg/dL (7.8-10.44); Carbon Dioxide 26 mmol/L (23-31); Chloride 110 mmol/L (98-107); Estimated GFR-MDRD 59; Globulin 2.9 g/dL (2.4-3.5); Glucose 163 mg/dL (83-110); Potassium 3.7 mmol/L (3.5-5.1); Protein, Total 7.1 g/dL (5.8-8.1); Sodium 144 mmol/L (136-145)
[2018-02-13 05:33] LABS: Troponin I Less than 0.010 ng/mL (< 0.028)
[2018-02-13] MEDS ORDERED: Albuterol Sulfate 2.5 mg/3 ml Neb ONE (06:08)
[2018-02-13] MEDS ORDERED: Sodium Chloride 0.9% 10 ML ONE (08:54)
--- NOTE | 2018-02-13 09:02 | RAD ---
FRONTAL VIEW CHEST: Date: 02/13/18 COMPARISON: 01/04/18. INDICATION: Dyspnea. FINDINGS: There is interstitial prominence of each lung. Evidence of prior sternotomy and vascular calcificatio n again seen. Otherwise, no significant interval change. IMPRESSION: 1. Stable chest. 2. Persistent interstitial opacities bilaterally with component of interval improvement of superimpo sed alveolar densities. This may be related to residual interstitial lung disease versus edema. Recom mend continued follow-up. POS: N[facility]
[2018-02-13 11:52] VITALS: BMI 23.2
[2018-02-13] MEDS ORDERED: Ondansetron HCl/PF 4 MG/2 ML Vial IVP PRN (13:47)
[2018-02-13] MEDS ORDERED: Ondansetron ODT 4 MG TAB PO PRN (13:47)
[2018-02-13] MEDS ORDERED: Acetaminophen 500 MG TAB PO PRN (13:47)
[2018-02-13] MEDS ORDERED: hydrALAZINE 20 MG/ML VIAL SLOW IVP PRN (13:47)
[2018-02-13] MEDS ORDERED: cloNIDine 0.1 MG TAB PO PRN (13:47)
[2018-02-13] MEDS ORDERED: Polyethylene Glycol 3350 17 GM Packet PO PRN (13:47)
[2018-02-13] MEDS ORDERED: predniSONE 20 MG TAB PO SCH (14:00)
[2018-02-13] MEDS ORDERED: NIFEdipine XL 60 MG TAB PO SCH (14:30)
[2018-02-13] MEDS ORDERED: Clopidogrel Bisulfate 75 MG TAB PO SCH (14:30)
--- NOTE | 2018-02-13 16:38 | HP ---
PRIMARY CARE PHYSICIAN: Dr. Srinath Sánchez. CHIEF COMPLAINT: Shortness of breath. HISTORY OF PRESENT ILLNESS: This is an 87-year-old -Malagasy male who presents to [facility] Emergency Department complaining of acute shortness of breath that started ezequiel roximately 2:30 a.m. 02/13/2018. The patient was apparently noted by EMS personnel tripoding with se mariae shortness of breath. The patient received IV Solu-Medrol, DuoNebs x3 and continued on oxygen handy pplementation. The patient states he is chronically on oxygen 2 liters per minute by nasal cannula, mainly at night and also uses his home nebulizer machine. The patient states he has been compliant w ith his chronic medication regimen including bronchodilator therapy and metered dose inhaler. The pa carroll states he was recently treated for approximately 3 days in 12/2017 for healthcare associated pn eumonia, discharging home on Levaquin for 5 days. The patient denied any specific fever, chills, exp osure history or recent travel. The patient denied any hemoptysis or productive sputum. The patient states he was sleeping under several fans at his home and has been going in and out of his house bet [employer] air conditioning and the summer heat. The patient denies any cigarette patient any tobacco use, but states he smoked for over 50+ years, quitting 20-25 years prior to this evaluation. [facility], the patient also received IV Levaquin and albuterol sulfate and was transferred to the te lemetry unit for further evaluation. PAST MEDICAL HISTORY: 1. Chronic obstructive pulmonary disease. 2. Chronic hypoxic respiratory failure on oxygen supplementation at 2 liters per minute by nasal can nula nocturnally. 3. Hypertension. 4. Diabetes mellitus type 2, on oral hypoglycemics. 5. Chronic kidney disease stage 3. 6. Hyperlipidemia. 7. Coronary artery disease. PAST SURGICAL HISTORY: 1. Status post coronary artery bypass grafting x4 vessels. 2. Status post lithotripsy. CURRENT MEDICATIONS: 1. Acetaminophen 500 mg 1-2 tabs p.o. q.6 hours p.r.n. pain. 2. Lipitor 20 mg p.o. at bedtime. 3. Carvedilol 12.5 mg p.o. b.i.d. 4. Plavix 75 mg p.o. daily. 5. Gabapentin 100 mg p.o. at bedtime. 6. Glipizide XL 5 mg p.o. q.a.m. 7. DuoNeb 3 mL nebulized q.4 hours p.r.n. 8. Isosorbide mononitrate 60 mg p.o. daily. 9. Procardia-XL 60 mg p.o. daily. 10. Protonix 40 mg p.o. daily. 11. MiraLax 17 grams p.o. daily. ALLERGIES: LISINOPRIL. FAMILY HISTORY: No inheritable diseases per patient report. Father with history of hayfever. SOCIAL HISTORY: Patient resides in [place], [place]. No current alcohol, tobacco or illicit drug use. Remote tobacco use, smoking greater than 50 years, quitting 20-25 years prior to this evaluation. Fu nctional of all activities of daily living. REVIEW OF SYSTEMS: The following complete review of systems was negative, unless otherwise mentioned in the HPI or below: Constitutional: Weight loss or gain, ability to conduct usual activities. Sk in: Rash, itching. Eyes: Double vision, pain. ENT/Mouth: Nose bleeding, neck stiffness, pain, te nderness. Cardiovascular: Palpitations, dyspnea on exertion, orthopnea. Respiratory: Shortness of breath, wheezing, cough, hemoptysis, fever or night sweats. Gastrointestinal: Poor appetite, abdom inal pain, heartburn, nausea, vomiting, constipation, or diarrhea. Genitourinary: Urgency, frequenc y, dysuria, nocturia. Musculoskeletal: Pain, swelling. Neurologic/Psychiatric: Anxiety, depressio n. Allergy/Immunologic: Skin rash, bleeding tendency. Otherwise negative except stated per HPI. PHYSICAL EXAMINATION: VITAL SIGNS: Currently, blood pressure 152/68, pulse 78, respiratory rate 19, temperature 97.8 degre es Fahrenheit, O2 saturation 97% on 2 liters per minute by nasal cannula. GENERAL APPEARANCE: This is an 87-year-old -Malagasy male, pleasant, responsive, in no acute distress. HEENT: Pupils are equal, round, and reactive to light and accommodation. Extraocular muscles are in tact. No scleral icterus, no conjunctival injection. Nares patent. OP is clear. Teeth in fair rep air. NECK: Supple, no cervical adenopathy, no thyromegaly, no carotid bruits, no JVD appreciated. Cervic al spine with full active and passive range of motion. No meningeal signs appreciated. CHEST: Diminished breath sounds in the bases bilaterally. Occasional scattered rhonchi. CARDIOVASCULAR: S1, S2, without noted murmur, rub or gallop. ABDOMEN: Rounded, soft, nontender, nondistended. Bowel sounds are positive in all four quadrants. There is no hepatosplenomegaly, no abdominal bruits, no rebound or guarding appreciated. EXTREMITIES: Warm and dry with fair turgor. No clubbing, cyanosis or asymmetric edema appreciated. Pulses palpable distally at the dorsalis pedis, posterior tibial, and popliteal arteries bilaterally . Capillary refill less than 2 seconds. NEUROLOGIC: Cranial nerves II-XII are grossly intact. No focal or lateralizing signs appreciated. PERTINENT LABORATORY AND X-RAY FINDINGS: Sodium 144, potassium 3.7, chloride 110, CO2 of 26, BUN 19, creatinine 1.39, estimated GFR 59, glucose 163, calcium 9.2. LFTs within normal limits. Troponin n egative x1. BNP 242, previously noted 509 01/04/2018. CBC showed a white blood cell count 8.7, hemo globin 12.4, hematocrit 37.5, and platelet count 216 with normal differential. Portable chest x-ray dated 02/13/2018 by my review shows interstitial opacities bilaterally consistent with chronic lung d isease. Interval resolution of previous infiltrate of the right middle and lower lobe. EKG dated 0 02/13/2018 by my interpretation shows a sinus mechanism with heart rates in the 70s. Attenuated R wav es in the precordial leads. Normal axis. No acute ST-T wave changes appreciated. ASSESSMENT AND PLAN: 1. Acute chronic obstructive pulmonary disease exacerbation. The patient will be admitted to the te lemetry unit. We will continue pulmonary supportive measures with DuoNebs q.4. Continue prednisone 40 mg p.o. daily. Zithromax 500 mg p.o. daily. Add Dulera 2 puffs b.i.d., oxygen as needed to maint ain O2 saturations greater than or equal to 90%. 2. Acute on chronic hypoxemic respiratory failure. See #1 above. Titrate oxygen to baseline levels . 3. Chronic kidney disease stage 3. Avoid nephrotoxic agents and contrast media. Repeat creatinine in the a.m. 4. Diabetes mellitus type 2. Insulin sliding scale for reflexive coverage. Continue glipizide XL 5 mg p.o. q.a.m. Serial Accu-Cheks before meals and at bedtime. ADA diet. 5. Hypertension. Resume home antihypertensive regimen to include carvedilol 12.5 mg b.i.d., isosorb alexy mononitrate 60 mg daily, and nifedipine 60 mg daily. 6. Prophylaxis. Sequential compression devices while in bed. Pepcid 20 mg p.o. b.i.d. 7. Code status is full. Surrogate medical decision maker is the patient's daughter.
[2018-02-13] MEDS: Carvedilol 25 MG TAB PO SCH (17:18)
[2018-02-13] MEDS: Mometasone/Formoterol 120 PUFF INHALER INH SCH ×2 (18:59→19:00)
[2018-02-13] MEDS ORDERED: Gabapentin 100 MG CAP PO SCH (21:00)
[2018-02-13] MEDS ORDERED: Atorvastatin Calcium 20 MG TAB PO SCH (21:00)
[2018-02-13] MEDS ORDERED: Dextrose 50% Abboject 50 ML SYRINGE IVP PRN (21:47)
[2018-02-13] MEDS ORDERED: Dextrose 5% in Water 1,000 ML IV PRN (21:47)
[2018-02-13] MEDS ORDERED: HumaLOG 300 UNITS/3 ML VIAL SC PRN ×2 (21:47)
[2018-02-13] MEDS: Famotidine 20 MG TAB PO SCH (22:06)
[2018-02-14 06:02] LABS: Anion Gap 12 mmol/L (10-20); BUN (Urea Nitrogen) 23 mg/dL (8.4-25.7); Calc. Creatinine Clearance 37 mL/min (70-130); Calcium 8.8 mg/dL (7.8-10.44); Carbon Dioxide 25 mmol/L (23-31); Chloride 108 mmol/L (98-107); Estimated GFR-MDRD 67; Glucose 136 mg/dL (83-110); Potassium 3.6 mmol/L (3.5-5.1); Sodium 141 mmol/L (136-145)
[2018-02-14 06:12] LABS: Band 10 % (5-11); Hemoglobin 10.8 g/dL (14.0-18.0); Lymphocytes 9 % (21-51); MDiff Complete? YES; Mean Corpuscular HGB CONC 32.5 g/dL (32.0-36.0); Mean Corpuscular Hemoglobin 31.1 pg (27.0-31.0); Mean Corpuscular Volume 95.8 fL (78.0-98.0); Mean Platelet Volume 7.9 fL (7.4-10.4); Monocytes 6 % (0-10); Neutrophil 75 % (42-75); Platelet Count 197 thou/uL (130-400); RBC Distribution Width 12.8 % (11.5-14.5); Red Blood Cell (RBC) Count 3.47 mill/uL (4.70-6.10); White Blood Cell (WBC) Count 14.7 thou/uL (4.8-10.8)
[2018-02-14] MEDS: Mometasone/Formoterol 120 PUFF INHALER INH SCH (07:12)
[2018-02-14] MEDS ORDERED: Sodium Chloride 0.9% 10 ML ONE (07:40)
[2018-02-14] MEDS: Famotidine 20 MG TAB PO SCH (08:07)
[2018-02-14] MEDS: Carvedilol 25 MG TAB PO SCH (08:07)
[2018-02-14] MEDS ORDERED: Azithromycin 250 MG TAB PO SCH (09:00)
[2018-02-14] MEDS ORDERED: NIFEdipine XL 60 MG TAB PO SCH (09:00)
[2018-02-14] MEDS ORDERED: predniSONE 20 MG TAB PO SCH (09:00)
[2018-02-14] MEDS ORDERED: Clopidogrel Bisulfate 75 MG TAB PO SCH (09:00)
--- NOTE | 2018-02-14 12:07 | DIS ---
DATE OF ADMISSION: 02/13/2018 DATE OF DISCHARGE: 02/14/2018 DISCHARGE DIAGNOSES: 1. Acute chronic obstructive pulmonary disease exacerbation, improved. 2. Acute on chronic hypoxemic respiratory failure with chronic oxygen supplementation at 2 liters pe r minute by nasal cannula. 3. Chronic kidney disease stage 3. 4. Diabetes mellitus type 2, stable. 5. Hypertension, labile. CONSULTATIONS: None. PERTINENT LAB AND X-RAY FINDINGS: Creatinine ranged between 1.24-1.39, estimated GFR ranging between 59-67. BNP 242 previously noted 509 on 01/04/2018. CBC showed a white blood cell count ranging bet ween 8.7-14.7, hemoglobin ranged between 10.8-12.4. Portable chest x-ray dated 02/13/2018 showed interstitial opacities bilaterally, likely chronic in charu jimenez. HOSPITAL COURSE: The patient was admitted to the telemetry unit after initially presenting with incr eased shortness of breath in the context of known chronic hypoxemic respiratory failure and COPD. Th e patient was treated for COPD exacerbation, placed on IV Solu-Medrol, bronchodilator therapy and Zit hromax. The patient was also initiated on Dulera 2 puffs b.i.d. and overall clinically stabilized in 24 hours. The patient is tolerating current oxygen supplementation at baseline levels of 2 liters p er minute by nasal cannula. The patient is ambulatory without assistance or difficulty and toleratin g regular oral intake. Telemetry monitoring showed premature ventricular contractions, otherwise sin us mechanism noted. I have examined the patient at the time of discharge and discussed followup instructions at which terry england verbalized understanding and agreement. The patient ready for discharge on 02/14/2018. DISCHARGE MEDICATIONS: 1. Lipitor 20 mg p.o. at bedtime. 2. Carvedilol 12.5 mg p.o. b.i.d. 3. Omnicef 300 mg p.o. b.i.d. x5 days. 4. Plavix 75 mg 1 tab p.o. daily. 5. Gabapentin 100 mg p.o. at bedtime. 6. Glipizide XL 5 mg p.o. daily. 7. DuoNeb 3 mL nebulized q.4 hours p.r.n. 8. Isosorbide mononitrate 60 mg p.o. daily. 9. Dulera 200 mcg/5 mcg 2 puffs inhaled b.i.d. 10. Nifedipine XL 60 mg p.o. daily. 11. Protonix 40 mg p.o. daily. 12. MiraLax 17 grams p.o. daily p.r.n. 13. Prednisone 20 mg 2 tabs p.o. daily x 3 days, followed by 1 tab p.o. daily x 3 days, followed by half a tab p.o. daily x3 days. FOLLOWUP: The patient to follow up with his primary care provider, Dr. Srinath Sánchez, within 7 days o f discharge. CONDITION ON DISCHARGE: Stable. ACTIVITY: Ad rambo. DIET: ADA. CODE STATUS: Full. DISPOSITION: Home on 02/14/2018.
[2018-02-14 12:42] VITALS: BP 154/72; TEMP 97.5
== END 2018-02-14 13:02 | disposition home or self-care (01) | DRG 189 ==
LOC: ERS 04:39 → 2NO 06:00
PROVIDERS: ADMIT Hospitalist; ATTEND Hospitalist
DX: J96.21 Acute and chronic respiratory failure with hypoxia (principal); J44.1 Chronic obstructive pulmonary disease with (acute) exacerbation; Z99.81 Dependence on supplemental oxygen; I12.9 Hypertensive chronic kidney disease with stage 1 through stage 4 chronic kidney disease, or unspecified chronic kidney disease; E11.22 Type 2 diabetes mellitus with diabetic chronic kidney disease; N18.3 Chronic kidney disease, stage 3 (moderate); Z87.891 Personal history of nicotine dependence; E78.5 Hyperlipidemia, unspecified; I25.10 Atherosclerotic heart disease of native coronary artery without angina pectoris; Z95.1 Presence of aortocoronary bypass graft
CPT/HCPCS: 36415; 36416; 71045; 80048; 80053; 82553; 83880; 84484; 85007; 85025; 85027; 93005; 94640; 96374; A4216; J1956; J7506; J7611; J7620

== ENCOUNTER 2018-06-30 18:53 | Observation (INO) | payer MEDICARE, MEDICAID ==
[2018-06-30 19:40] LABS: #Monocytes 0.7 thou/uL (0.11-0.59); #Neutrophils 7.5 thou/uL (1.40-6.50); %Basophils 0.2 % (0.0-1.0); %Eosinophils 0.2 % (0.0-10.0); %Lymphocytes 10.7 % (21.0-51.0); %Monocytes 7.1 % (0.0-10.0); %Neutrophils 81.9 % (42.0-75.0); Hemoglobin 12.2 g/dL (14.0-18.0); Mean Corpuscular HGB CONC 33.2 g/dL (32.0-36.0); Mean Corpuscular Hemoglobin 31.3 pg (27.0-31.0); Mean Corpuscular Volume 94.3 fL (78.0-98.0); Mean Platelet Volume 8.1 fL (7.4-10.4); Platelet Count 237 thou/uL (130-400); RBC Distribution Width 13.9 % (11.5-14.5); Red Blood Cell (RBC) Count 3.91 mill/uL (4.70-6.10); White Blood Cell (WBC) Count 9.1 thou/uL (4.8-10.8)
[2018-06-30 20:01] LABS: ALT (SGPT) 15 U/L (8-55); AST (SGOT) 23 U/L (5-34); Albumin 4.2 g/dL (3.4-4.8); Alkaline Phosphatase 77 U/L (40-150); Anion Gap 16 mmol/L (10-20); BUN (Urea Nitrogen) 27 mg/dL (8.4-25.7); Bilirubin, Total 0.5 mg/dL (0.2-1.2); Calc. Creatinine Clearance 0 mL/min (70-130); Calcium 9.6 mg/dL (7.8-10.44); Carbon Dioxide 23 mmol/L (23-31); Chloride 108 mmol/L (98-107); Estimated GFR-MDRD 41; Glucose 142 mg/dL (83-110); Potassium 4.5 mmol/L (3.5-5.1); Protein, Total 7.2 g/dL (5.8-8.1); Sodium 142 mmol/L (136-145)
[2018-06-30 20:26] LABS: Troponin I 0.012 ng/mL (< 0.028)
--- NOTE | 2018-06-30 21:13 | RAD ---
SINGLE VIEW OF THE CHEST: Comparison: 02-13-18 History: Chest pain for the last three days. FINDINGS: Single view of the chest shows a normal sized cardiomediastinal silhouette. The patient is status pos t sternotomy. There is no evidence of consolidation, mass, or pleural effusion. Degenerative changes are seen in the spine and right shoulder. IMPRESSION: No evidence of acute cardiopulmonary disease. POS: [facility]
[2018-06-30] MEDS ORDERED: Labetalol HCl 100 MG/20 ML VIAL ONE (23:49)
[2018-06-30 23:50] LABS: Troponin I 0.013 ng/mL (< 0.028)
[2018-07-01 00:40] VITALS: BMI 21.6
[2018-07-01] MEDS ORDERED: Labetalol HCl 100 MG/20 ML VIAL SLOW IVP PRN (01:25)
[2018-07-01] MEDS: hydrALAZINE 20 MG/ML VIAL SLOW IVP PRN ×3 (01:41→11:48)
[2018-07-01 02:49] LABS: Troponin I Less than 0.010 ng/mL (< 0.028)
[2018-07-01] MEDS ORDERED: Nitroglycerin 0.4 MG TAB (25 Tab Bottle) ONE (08:18)
[2018-07-01] MEDS ORDERED: Dextrose 5% in Water 1,000 ML IV PRN (09:57)
[2018-07-01] MEDS ORDERED: HumaLOG 300 UNITS/3 ML VIAL SC PRN ×2 (09:57)
[2018-07-01] MEDS ORDERED: Dextrose 50% Abboject 50 ML SYRINGE SLOW IVP PRN (09:57)
[2018-07-01] MEDS ORDERED: Carvedilol 6.25 MG TAB PO SCH (10:45)
[2018-07-01] MEDS ORDERED: Clopidogrel Bisulfate 75 MG TAB PO SCH (10:45)
[2018-07-01] MEDS: Carvedilol 6.25 MG TAB PO SCH (16:12)
[2018-07-01] MEDS ORDERED: Nitroglycerin 0.4 MG TAB (25 Tab Bottle) SL PRN (19:00)
[2018-07-01] MEDS: Mometasone/Formoterol 120 PUFF INHALER INH SCH (19:16)
--- NOTE | 2018-07-01 19:27 | HP ---
PRIMARY CARE PHYSICIAN: Antony Rodas MD CHIEF COMPLAINT: High blood pressure. HISTORY OF PRESENT ILLNESS: Mr. Shook is an 87-year-old male with known history of chronic kidney disease, stage 3; diabetes mellitus; COPD, on chronic home oxygen; coronary artery disease, status post CABG; as well as hypertension; who presented to the emergency room with above-mentioned complaint. History is mainly obtained by the patient himself, who is somewhat of a poor historian. Electronic medical records have been reviewed. He was last admitted to our facility in January 2018 for acute COPD exacerbation, and prior to that, in December 2017 with pneumonia and COPD exacerbation. Mr. Shook reports that he is compliant with his medication, but unfortunately, he ate some pork and other food that he is not supposed to eat yesterday. He took his blood pressure at home and it read more than 200, so he called EMS. He denies any fever, chills, or any other changes. He denies any nausea, vomiting, or diarrhea. He denies any paresthesias or muscle weakness. He denies any shortness of breath or chest pain. He does report that for some reason, they gave him sublingual nitroglycerin in the ER and it made him feel better. According to the record review, it seems like this was done by EMS as the patient was having some complaints of chest pain. In the emergency room, he was found to be stable with negative cardiac enzymes. His blood pressure was elevated upon presentation to 202/95, for which he received second dose of labetalol with improved control. He is now being admitted to the floor for hypertensive urgency and further workup of chest pain under observation status. Since he has been upon the floor, his blood pressure is under much better control and all of his symptoms have resolved. PAST MEDICAL HISTORY: 1. History of COPD. 2. History of chronic kidney disease, stage 3. 3. Hypertension. 4. Dyslipidemia. 5. Coronary artery disease. 6. Chronic hypoxic respiratory failure, on home oxygen at nighttime. PAST SURGICAL HISTORY: 1. CABG x4 vessels. 2. Lithotripsy. FAMILY HISTORY: No significant family history of coronary artery disease or stroke per the patient. SOCIAL HISTORY: He lives in [place], [place]. No history of recent drug, tobacco, or alcohol abuse. Independent with all activities of daily living. CODE STATUS: Full code, discussed with the patient. ALLERGIES: LISINOPRIL IS LISTED HIS ALLERGY IN THE ER RECORD. CURRENT MEDICATIONS: 1. Dulera 200/5 mcg two puffs b.i.d. 2. Rapaflo 8 mg daily. 3. Lipitor 20 mg daily. 4. Carvedilol 6.25 b.i.d. 5. Glucotrol XL 5 mg daily. 6. Protonix 40 mg daily. 7. Isosorbide mononitrate 60 mg daily. 8. Gabapentin 100 mg daily. 9. Plavix 75 mg daily. 10. Procardia 60 mg at bedtime. REVIEW OF SYSTEMS: A 12-point review of systems was done. It is negative except for those mentioned in the history and physical. LABORATORY DATA: CBC shows WBCs of 9.1 with 81% neutrophils, hemoglobin 12.2. Serum chemistry showed creatinine 1.90, BUN 27, blood sugar 142. Cardiac enzyme, troponin negative x2. Chest x-ray by my review has no evidence to suggest pleural effusion or edema or infiltrate. A 12-lead EKG by my review shows first-degree AV block without any ST or T waves. PHYSICAL EXAMINATION: VITAL SIGNS: Most recent vital signs; temperature 98.1, pulse 70, respirations 12, saturating 97% on room air, and blood pressure 159/70. GENERAL: In no acute distress. Awake, alert, and oriented x3. HEENT: Mucous membrane is moist and pink. No oropharyngeal exudate or erythema. Head is normocephalic and atraumatic. Pupils are equal and reactive to light and accommodation. Extraocular movement intact. NECK: Supple without any lymphadenopathy, JVD, or bruits. CHEST: Clear to auscultation without any wheezing, rales, or rhonchi. HEART: Rate and rhythm are regular without any murmurs, rubs, or gallops. ABDOMEN: Soft, nontender, and nondistended with positive bowel sounds. EXTREMITIES: Free of any cyanosis, clubbing, or edema. NEUROLOGIC: Nonfocal. IMPRESSION AND PLAN: 1. Hypertensive urgency with evidence of acute renal insufficieny, end-organ damage. The patient's blood pressure has been under better control now. He does not require any IV drips for the same. Home medications have been restarted with excellent control of the blood pressure. P.r.n. antihypertensives will also be added. 2. Chest pain, most likely secondary to #1. Nothing to suggest acute coronary syndrome in this patient. Cardiac enzymes are unremarkable. He had a negative stress test in February 2017, and an echocardiogram done in November 2017, which showed normal ejection fraction and normal valvular function. We will repeat the troponin in the morning once again for completion sake and continue his home medications. 3. Acute renal insufficiency. The patient does have chronic kidney insuffiencey, but his renal numbers are somewhat higher than his baseline. Likely due to #1. We will repeat in the morning and avoid nephrotoxic medications. 4. History of chronic obstructive pulmonary disease. We will restart his Dulera and add nebulizers as needed. Currently, it is compensated. 5. Chronic hypoxic respiratory failure. We will continue his home oxygen at nighttime that he uses. 6. History of coronary artery disease. We will restart his beta-leeanna, Plavix, as well as isosorbide, and nifedipine. AQUILES inhibitor allergy is listed. 7. Diabetes mellitus. Restart his Glucotrol and add insulin sliding scale for further control with Accu-Cheks a.c. and at bedtime. 8. Code status, full code discussed with the patient. 9. Deep venous thrombosis and gastrointestinal prophylaxis. DISPOSITION: Mr. Shook is currently being admitted under observation status for uncontrolled hypertension and hypertensive urgency with resultant chest pain. Further management will depend upon his clinical course. He is currently under observation status. Job ID: [id number]
[2018-07-01] MEDS: Gabapentin 100 MG CAP PO SCH (20:07)
[2018-07-01] MEDS: Atorvastatin Calcium 20 MG TAB PO SCH (20:07)
[2018-07-01] MEDS: NIFEdipine XL 60 MG TAB PO SCH (20:08)
[2018-07-01] MEDS: Enoxaparin Sodium 30 MG/0.3 ML SYRINGE SC SCH (20:09)
[2018-07-02 06:58] LABS: Anion Gap 10 mmol/L (10-20); BUN (Urea Nitrogen) 23 mg/dL (8.4-25.7); Calc. Creatinine Clearance 31 mL/min (70-130); Calcium 9.1 mg/dL (7.8-10.44); Carbon Dioxide 28 mmol/L (23-31); Chloride 108 mmol/L (98-107); Estimated GFR-MDRD 60; Glucose 137 mg/dL (83-110); Potassium 3.5 mmol/L (3.5-5.1); Sodium 142 mmol/L (136-145)
[2018-07-02] MEDS: Mometasone/Formoterol 120 PUFF INHALER INH SCH (07:09)
[2018-07-02] MEDS: Silodosin 8 MG CAP PO SCH (08:03)
[2018-07-02] MEDS: Carvedilol 6.25 MG TAB PO SCH (08:03)
[2018-07-02] MEDS: Clopidogrel Bisulfate 75 MG TAB PO SCH (08:03)
[2018-07-02] MEDS ORDERED: Clopidogrel Bisulfate 75 MG TAB PO SCH (09:00)
[2018-07-02] MEDS ORDERED: ISOSORBIDE MONONITRATE 60 MG PO SCH (09:00)
--- NOTE | 2018-07-02 13:49 | PDOC.PN ---
- Subjective Encounter Start Date: 07/02/18 Encounter Start Time: 11:20 Pt seen for followup re: NSVT. Denies chest pain, shortness of breath, fevers or chills. No nausea or vomiting. - Objective Resuscitation Status - Order Detail: 07/01/18 18:05 Resuscitation Status Routine Resuscitation Status: FULL: Full Resuscitation Additional comments: discussed w pt MAR Reviewed: Yes Vital Signs & Weight: Vital Signs (12 hours) Temp Pulse Resp BP Pulse Ox 07/02/18 11:14 97.6 F 67 16 167/77 H 97 07/02/18 07:25 97.6 F 63 16 152/67 H 95 07/02/18 07:09 80 14 98 07/02/18 04:04 98.6 F 72 20 161/74 H 98 Weight Weight 122 lb 6.4 oz I&O: 07/01/18 07/02/18 07/03/18 06:59 06:59 06:59 Intake Total 120 1090 250 Output Total 925 5035 400 Balance -805 -785 -150 Result Diagrams: 06/30/18 19:31 07/02/18 06:24 Additional Labs: Accuchecks 07/02/18 07/01/18 11:20 20:38 POC Glucose 189 H 161 H EKG Reviewed by me: Yes (Tele: NSVT) Phys Exam - Physical Examination Constitutional: NAD HEENT: moist MMs Neck: supple Respiratory: clear to auscultation bilateral Cardiovascular: RRR Gastrointestinal: soft Neurological: moves all 4 limbs Psychiatric: normal affect Dx/Plan (1) NSVT (nonsustained ventricular tachycardia) Code(s): I47.2 - VENTRICULAR TACHYCARDIA Status: Acute Comment: continue to monitor on tele, await cardiology opinion (2) Acute worsening of stage 3 chronic kidney disease Code(s): N18.3 - CHRONIC KIDNEY DISEASE, STAGE 3 (MODERATE) Status: Acute Comment: creatinine improved (3) DM2 (diabetes mellitus, type 2) Status: Chronic Comment: reasonable control (4) HTN (hypertension) Code(s): I10 - ESSENTIAL (PRIMARY) HYPERTENSION Status: Chronic Qualifiers: Comment: monitor vital signs and titrate antihypertensives as needed (5) Hyperlipidemia Code(s): E78.5 - HYPERLIPIDEMIA, UNSPECIFIED Status: Chronic Comment: continue statin (6) Hypertensive urgency Code(s): I16.0 - HYPERTENSIVE URGENCY Status: Resolved - Plan * . Review of Systems - Review of Systems Respiratory: negative: Cough, Shortness of Breath, SOB with Excertion, Pleuritic Pain, Wheezing Cardiovascular: negative: chest pain, palpitations, orthopnea, paroxysmal nocturnal dyspnea, edema, light headedness - Medications/Allergies Allergies/Adverse Reactions: Allergies Allergy/AdvReac Type Severity Reaction Status Date / Time No Known Allergies Allergy Verified 07/01/18 01:21 Medications: Current Medications Albuterol/Ipratropium (Duoneb) 3 ml NEB [id number] PRN PRN Reason: SOB &/or Wheezing Atorvastatin Calcium (Lipitor) 20 mg PO [facility] Last Admin: 07/01/18 20:07 Dose: 20 mg Carvedilol (Coreg) 6.25 mg PO BID[facility] Last Admin: 07/02/18 08:03 Dose: 6.25 mg Clopidogrel Bisulfate (Plavix) 75 mg PO DAILY [facility] Last Admin: 07/02/18 08:03 Dose: 75 mg Dextrose/Water (Dextrose 50%) 25 gm SLOW IVP PRN PRN PRN Reason: Hypoglycemia Enoxaparin Sodium (Lovenox) 30 mg SC 2100 [facility] Last Admin: 07/01/18 20:09 Dose: Not Given Gabapentin (Neurontin) 100 mg PO [facility] Last Admin: 07/01/18 20:07 Dose: 100 mg Glipizide (Glucotrol Xl) 5 mg PO QAM-[facility] Last Admin: 07/02/18 08:03 Dose: 5 mg Glucagon (Glucagon) 1 mg IM PRN PRN PRN Reason: Hypoglycemia Hydralazine HCl (Apresoline) 10 mg SLOW IVP Q4H PRN PRN Reason: SBP > 180 Last Admin: 07/01/18 11:48 Dose: 10 mg Dextrose/Water (D5w) 1,000 mls @ 0 mls/hr IV .Q0M PRN PRN Reason: Hypoglycemia Insulin Human Lispro (Humalog) 0 units SC .MODERATE SLIDING SC PRN PRN Reason: Moderate Correctional Scale Insulin Human Lispro (Humalog) 0 units SC .BEDTIME SLIDING SC PRN PRN Reason: Bedtime Correctional Scale Isosorbide Mononitrate (Imdur) 60 mg PO DAILY [facility] Last Admin: 07/02/18 08:02 Dose: 60 mg Labetalol HCl (Normodyne) 10 mg SLOW IVP Q4H PRN PRN Reason: SBP > 220 Last Admin: 07/01/18 05:55 Dose: 10 mg Mometasone Furoate/Formoterol Fumar (Dulera 200 Mcg/5 Mcg Inhaler) 2 puff INH BID-RT [facility] Last Admin: 07/02/18 07:09 Dose: 2 puff Nifedipine (Procardia Xl) 60 mg PO HS [facility] Last Admin: 07/01/18 20:08 Dose: 60 mg Nitroglycerin (Nitrostat) 0.4 mg SL Q5MIN PRN PRN Reason: Chest Pain Pantoprazole Sodium (Protonix) 40 mg PO HS [facility] Last Admin: 07/01/18 20:08 Dose: 40 mg Silodosin (Rapaflo) 8 mg PO QAM-WM [facility] Last Admin: 07/02/18 08:03 Dose: 8 mg Sodium Chloride (Flush - Normal Saline) 10 ml IVF Q12HR [facility] Last Admin: 07/02/18 08:04 Dose: 10 ml Sodium Chloride (Flush - Normal Saline) 10 ml IVF PRN PRN PRN Reason: Saline Flush Last Admin: 07/01/18 05:56 Dose: 10 ml
[2018-07-02] MEDS ORDERED: Acetaminophen 325 MG TAB PO PRN (16:53)
[2018-07-02] MEDS: Atorvastatin Calcium 20 MG TAB PO SCH (20:40)
[2018-07-02] MEDS: Enoxaparin Sodium 30 MG/0.3 ML SYRINGE SC SCH ×2 (20:40→20:47)
[2018-07-02] MEDS: Gabapentin 100 MG CAP PO SCH (20:42)
[2018-07-02] MEDS: NIFEdipine XL 60 MG TAB PO SCH (20:43)
[2018-07-03] MEDS: Mometasone/Formoterol 120 PUFF INHALER INH SCH ×2 (01:33→06:40)
--- NOTE | 2018-07-03 08:30 | CON ---
DATE OF CONSULTATION: Please see full consultation by Dr. Garcia. Mr. Shook is a pleasant 87-year-old gentleman, who is a patient of Dr. Suhas Donnelly. He recently presented with hypertension. He also complained of left arm and chest pain. He was found to have 9 beats of nonsustained ventricular tachycardia. His LVEF has been normal in the past. He has been on beta-leeanna therapy. PAST MEDICAL HISTORY: Please see Dr. Garcia's note. PHYSICAL EXAMINATION: GENERAL: Patient is a pleasant male who is in no acute distress. The patient appears their stated age. VITAL SIGNS: Blood pressure 173/74, pulse 61, and temperature 97.9. NEUROLOGIC: The patient is alert and oriented x3 with no focal neurologic deficits. HEENT: Sclerae without icterus. Mouth has moist mucous membranes with normal pallor. NECK: No JVD. Carotid upstroke brisk. No bruits bilaterally. LUNGS: Clear to auscultation with unlabored respirations. BACK: No scoliosis or kyphosis. CARDIAC: Regular rate and rhythm with normal S1 and S2. No S3 or S4 noted. No significant rubs, murmurs, thrills, or gallops noted throughout the precordium. PMI is not displaced. There is no parasternal heave. ABDOMEN: Soft, nontender, nondistended. No peritoneal signs present. No hepatosplenomegaly. No abnormal striae. EXTREMITIES: 2+ femoral and 2+ dorsalis pedis pulses. No cyanosis, clubbing, or edema. SKIN: No gross abnormalities. LABORATORY DATA: Pertinent labs: Hemoglobin 12.2. Creatinine 1.37. IMPRESSION: 1. Nonsustained ventricular tachycardia. 2. Hypertension. 3. Atypical chest pain. RECOMMENDATIONS: The patient does have history of CAD, status post bypass surgery. His LVEF has been normal in the past. He has also been on beta-leeanna therapy. He did have 9 beats of nonsustained VT. His potassium is 3.5. I would recommend to check on the magnesium level. Given his last stress test was almost 2 years ago I recommend he now have a stress test to ischemia. Recommendations from Dr. Donnelly in the a.m. Job ID: [id number]
--- NOTE | 2018-07-03 08:47 | CON ---
DATE OF CONSULTATION: 07/02/18 CARDIOLOGY CONSULTATION NOTE HISTORY OF PRESENT ILLNESS: This is an 87-year-old gentleman with a past medical history of coronary artery disease, status post 4-vessel CABG, COPD, hypertension, diabetes, and CKD 3, who presented with complaints of elevated blood pressure. The patient reports that his blood pressures have been in the 200s and he endorses a left shoulder pain that radiated to his sternum and the left side of his chest that he refers to as arthritis pain. The patient was given a nitro and reports that this significantly improved his pain. The patient was admitted for evaluation of hypertensive urgency and has continued to have elevated blood pressures. The patient denied any other symptoms of palpitations, lightheadedness, or dizziness. The patient does endorse some baseline shortness of breath and dyspnea on exertion due to his COPD. The patient requires nightly home oxygen for this condition. The patient denies any syncopal or presyncopal episodes, and does not endorse any symptoms during episodes of irregular rhythms that were found on telemetry. PAST MEDICAL HISTORY: 1. CAD, status post 4-vessel CABG. 2. COPD. 3. CKD 3. 4. Hypertension. 5. Hyperlipidemia. 6. Chronic hypoxic respiratory failure, on nightly home O2. PAST SURGICAL HISTORY: Four-vessel CABG. HOME MEDICATIONS: 1. Dulera. 2. Silodosin. 3. Atorvastatin. 4. Carvedilol. 5. Glipizide. 6. Protonix. 7. Isosorbide mononitrate. 8. Gabapentin. 9. Plavix. 10. Nifedipine. ALLERGIES: LISINOPRIL. FAMILY HISTORY: The patient denies any significant family history. SOCIAL HISTORY: The patient denies any tobacco, alcohol, or drug use. REVIEW OF SYSTEMS: GENERAL: Denies fevers or chills. HEENT: Denies sore throat or rhinorrhea. CARDIOVASCULAR: Endorses chest pain. Denies palpitations or edema. RESPIRATORY: Endorses shortness of breath and wheezing. GI: Denies nausea, vomiting, or abdominal pain. : Denies dysuria or hematuria. MUSCULOSKELETAL: Endorses left shoulder pain. SKIN: Denies rashes or lesions. NEUROLOGIC: Denies dizziness, presyncope, syncope, or seizures. PSYCHIATRIC: Denies anxiety or depression. PHYSICAL EXAMINATION: VITAL SIGNS: Temperature 97.6, heart rate 67, respiratory rate 16, O2 sat 97% on room air, blood pressure 167/77, weight 57.198 kg. GENERAL: A well-nourished male, in no acute distress. HEENT: Moist mucous membranes. Extraocular muscles intact. Normocephalic and atraumatic head. NECK: Supple. No lymphadenopathy. No JVD. HEART: Regular rate and rhythm. No murmurs, gallops, or rubs. RESPIRATORY: Lungs are clear to auscultation bilaterally with no wheezing, rhonchi, or rales. ABDOMEN: Soft, nondistended, and nontender. Normoactive bowel sounds. EXTREMITIES: No cyanosis or edema. NEUROLOGIC: Cranial nerves II through XII grossly intact. No focal deficits. PSYCHIATRIC: Euthymic mood with appropriate affect. Alert and oriented x3. SKIN: No unusual bruises or bleeding. DIAGNOSTIC STUDIES: LABORATORY RESULTS: Hemoglobin 12.2, hematocrit 36.9. Sodium 142, potassium 3.5, chloride 108, CO2 of 28, BUN 23, creatinine 1.37, and GFR 60. Troponin 0.010, 0.013, 0.012. BNP 363.5. CARDIOVASCULAR STUDIES: EKG showed first-degree AV block. IMAGING STUDIES: Chest x-ray showed no evidence of acute cardiopulmonary disease. Telemetry monitoring shows few episodes of nonsustained ventricular tachycardia, first-degree AV block. ASSESSMENT: 1. Nonsustained ventricular tachycardia. 2. Hypertensive urgency. 3. Atypical chest pain, likely secondary to hypertensive urgency. 4. Acute kidney injury. 5. Chronic obstructive pulmonary disease. 6. Chronic hypoxic respiratory failure. 7. Coronary artery disease. 8. Diabetes. PLAN: 1. Nonsustained ventricular tachycardia noted on telemetry. The patient is asymptomatic during this time. However, with this and a combination of chest and left shoulder pain, we will proceed with a stress test while the patient is n.p.o. after midnight, hold beta-blockers. The patient's last stress test was in February 2017, it was normal at that time. 2. Continue home anti-hypertensive medications; however, hold carvedilol for the stress test. 3. Continue to monitor on telemetry and repeat EKG for any new chest pain. 4. We will continue to follow. The patient was seen and evaluated by Dr. Lawrence, who agrees with the plan unless stated otherwise. Job ID: [id number] [facility]
[2018-07-03] MEDS ORDERED: Regadenoson 0.4 MG/5 ML SYRINGE ONE (10:53)
[2018-07-03] MEDS: Clopidogrel Bisulfate 75 MG TAB PO SCH (14:11)
[2018-07-03] MEDS: Silodosin 8 MG CAP PO SCH (14:12)
--- NOTE | 2018-07-03 14:42 | NM ---
NUCLEAR MEDICINE CARDIAC PERFUSION EXAMINATION WITH EJECTION FRACTION: DATE: 07/03/18 COMPARISON: 03/04/17. HISTORY: 87-year-old male with chest pain. TECHNIQUE: A single day nuclear medicine cardiac perfusion examination was performed. Rest images were obtained using 9.3 mCi of technetium-99m sestamibi. Stress images were obtained using 31 mCi of technetium-99m sestamibi and Lexiscan. FINDINGS: Tomographic images show no significant perfusion defects. Gated images show normal wall motion with a n ejection fraction of 55%. EDV: 96 mL LHR: 0.3 TID: 1.0 IMPRESSION: No evidence of ischemia. POS: [facility]
[2018-07-03 15:29] LABS: #Lymphocytes 1.2 thou/uL (1.20-3.40); #Neutrophils 9.6 thou/uL (1.40-6.50); %Basophils 0.2 % (0.0-1.0); %Eosinophils 0.2 % (0.0-10.0); %Lymphocytes 10.2 % (21.0-51.0); %Monocytes 8.2 % (0.0-10.0); %Neutrophils 81.2 % (42.0-75.0); Hemoglobin 13.8 g/dL (14.0-18.0); Mean Corpuscular Hemoglobin 30.4 pg (27.0-31.0); Mean Corpuscular Volume 94.9 fL (78.0-98.0); Mean Platelet Volume 7.8 fL (7.4-10.4); Platelet Count 270 thou/uL (130-400); RBC Distribution Width 14.4 % (11.5-14.5); Red Blood Cell (RBC) Count 4.55 mill/uL (4.70-6.10); White Blood Cell (WBC) Count 11.8 thou/uL (4.8-10.8)
[2018-07-03 15:49] LABS: Anion Gap 12 mmol/L (10-20); BUN (Urea Nitrogen) 26 mg/dL (8.4-25.7); Calc. Creatinine Clearance 31 mL/min (70-130); Calcium 9.8 mg/dL (7.8-10.44); Carbon Dioxide 28 mmol/L (23-31); Chloride 104 mmol/L (98-107); Estimated GFR-MDRD 58; Glucose 195 mg/dL (83-110); Magnesium 2.1 mg/dL (1.6-2.6); Potassium 3.6 mmol/L (3.5-5.1); Sodium 140 mmol/L (136-145)
[2018-07-03 16:00] VITALS: BP 158/72; TEMP 97.7
[2018-07-03] MEDS ORDERED: Potassium Chloride 20 MEQ TAB PO SCH (16:00)
--- NOTE | 2018-07-03 18:17 | DIS ---
DATE OF ADMISSION: 06/30/2018 DATE OF DISCHARGE: 07/03/2018 PRIMARY CARE PROVIDER: Antony Rodas MD DISCHARGE DIAGNOSES: 1. Hypertensive urgency. 2. Acute on chronic kidney disease, stage 3. 3. Chest pain. 4. Nonsustained ventricular tachycardia. CONDITION OF PATIENT ON THE DAY OF DISCHARGE: Stable. I assessed Mr. Shook on the day of discharge. He denies any chest pain or shortness of breath. Vital signs are stable. S1 and S2 are heard, regular. Lungs are clear to auscultation bilaterally. DISCHARGE MEDICATIONS: His Procardia dose was increased to 60 mg 2 times a day. Otherwise, no change was made to his preadmission home medications as dictated by Dr. eHrnandez in her history and physical note dated July 01, 2018. CONSULTATIONS DURING THIS HOSPITALIZATION: Cardiology, Dr. Lawrence. HOSPITAL COURSE: Mr. Shook is a pleasant 87-year-old gentleman, who was admitted to [facility] for hypertensive urgency and acute on chronic kidney injury on July 01, 2018. Please refer to Dr. Hernandez's history and physical note dated July 01, 2018, for further details. He was seen by Cardiology Service. He had nonsustained ventricular tachycardia. His potassium level on the day of discharge is 3.6, he is getting an additional 40 mEq dose prior to discharge. He underwent stress test because he also complained of chest pain. The stress test did not show any evidence of ischemia. He has been asymptomatic following hospitalization. His creatinine improved to 1.41 on the day of discharge, down from 1.90 on June 30. On the day of discharge, he had sodium 140, potassium 3.6, blood urea nitrogen 26, creatinine 1.41, calcium 9.8, and magnesium 2.1. White count 11,800, hemoglobin 13.8, and platelet count 270,000. During this hospitalization, he had a BNP of 363.5. Many thanks for allowing me to participate in your patient's care. Please feel free to contact me with any questions or concerns. DISCHARGE DISPOSITION: Home. Job ID: [id number]
[2018-07-03] MEDS ORDERED: NIFEdipine XL 60 MG TAB PO SCH (21:00)
--- NOTE | 2018-07-06 13:01 | EKG ---
Test Reason : Blood Pressure : / mmHG Vent. Rate : 075 BPM Atrial Rate : 075 BPM P-R Int : 216 ms QRS Dur : 140 ms QT Int : 412 ms P-R-T Axes : 061 046 035 degrees QTc Int : 460 ms Sinus rhythm with 1st degree A-V block Right bundle branch block Abnormal ECG Confirmed by JUDY CM ([id number]), editor & co founder QUYNH CANO ([id number]) on 07/06/2018 1:01:43 PM Referred By: Confirmed By:JUDY CM
== END 2018-07-03 16:58 | disposition home or self-care (01) ==
LOC: ERS 18:53 → 2SW 23:00
PROVIDERS: ADMIT Internal Medicine; ATTEND Internal Medicine
DX: I16.0 Hypertensive urgency (principal); I12.9 Hypertensive chronic kidney disease with stage 1 through stage 4 chronic kidney disease, or unspecified chronic kidney disease; E11.22 Type 2 diabetes mellitus with diabetic chronic kidney disease; N18.3 Chronic kidney disease, stage 3 (moderate); N17.9 Acute kidney failure, unspecified; I47.2 Ventricular tachycardia; R07.89 Other chest pain; J44.9 Chronic obstructive pulmonary disease, unspecified; I25.10 Atherosclerotic heart disease of native coronary artery without angina pectoris; J96.11 Chronic respiratory failure with hypoxia; E78.5 Hyperlipidemia, unspecified; Z79.02 Long term (current) use of antithrombotics/antiplatelets; Z79.84 Long term (current) use of oral hypoglycemic drugs; Z79.899 Other long term (current) drug therapy; Z88.8 Allergy status to other drugs, medicaments and biological substances; Z99.81 Dependence on supplemental oxygen; Z95.1 Presence of aortocoronary bypass graft
CPT/HCPCS: 71045; 78452; 80048 ×2; 80053; 82962 ×3; 83735; 83880; 84484 ×4; 85025 ×2; 93005; 93017; 94640 ×3; 96374; 96375; 96376; 99285; A9500; G0378 ×3; 36415; 36416; J0360; J1650; J2785

== ENCOUNTER 2018-11-12 10:03 | Outpatient (CLI) | payer MEDICARE ==
--- NOTE | 2018-11-12 14:47 | NM ---
NM Bone Scan STANDARD HISTORY: Malignant neoplasm of prostate COMPARISON: 01/25/2018 RADIOPHARMACEUTICAL: 32 mCi technetium 99m-MDP injected intravenously FINDINGS: Increased uptake secondary to degenerative changes is again seen in the sternoclavicular shawn ints, shoulders, wrists, hips, knees and feet. No other abnormal areas of tracer localization are seen in the skeleton to suggest metastatic disease. Tracer excretion through the kidneys is within no rmal limits. IMPRESSION: No evidence of osseous metastatic disease.
== END 2018-11-12 10:04 | disposition home or self-care (01) ==
LOC: NM 10:03
PROVIDERS: ATTEND Urology
DX: C61 Malignant neoplasm of prostate (principal)
CPT/HCPCS: 78306; A9503

== ENCOUNTER 2018-11-21 13:49 | Outpatient (CLI) | payer MEDICARE ==
[~2018-11-21 13:49] MED LIST: Gadobenate Dimeglumine 529 MG/1 ML (20ML VIAL) ONE
--- NOTE | 2018-11-22 09:37 | MRI ---
MRI OF THE PELVIS WITH AND WITHOUT IV CONTRAST: INDICATION: History of prostate cancer without history of biopsy. TECHNIQUE: Multiplanar, multisequence MR images were obtained of the pelvis with and without IV contrast utilizi ng 13 cc of MultiHance. Due to the presence of a large amount of retained stool and gas within the r ectum, the patient was scanned in the prone position. The patient was having difficulty in holding s till during the examination. Motion artifact does limit the image detail. The examination was inter preted on a separate [employer] work station for multiparametric evaluation. FINDINGS: The prostate gland measures 4.9 x 3.5 x 3.6 cm giving an estimated prostatic volume of 31.52 cc. There is a lenticular region of low signal intensity seen on the ADC and T2 weighted images within th e anterolateral left mid gland peripheral zone and anterolateral left transitional zone without a DWI correlate or evidence of abnormal enhancement in this region. Findings may reflect a focus of scar. No additional definite hypointensity is seen on the ADC series within the peripheral zone. No defini te additional central zone abnormality is evident. The extent of the motion artifact heavily limits image detail and neurovasculature; however, grossly there is no evidence of definite enlarged lymphadenopathy. There is a high T1 and high T2 signal intensity seen within the proximal left adductor musculature wi th some mild enhancement suspicious for a muscular strain. An intramuscular mass lesion cannot be en tirely excluded based on the provided images. There are small subchondral cyst-like abnormalities in volving the femoral head laterally. No additional marrow signal abnormality is noted. IMPRESSION: 1. PIRADS category 3 - intermediate (the presence of clinically significant cancer is equivocal) . There is a lenticular region of slightly diminished signal intensity on the ADC and T2 weighted im ages within the anterolateral aspect of the left mid gland that extends to involve the anterolateral left peripheral zone and anterolateral aspect of the transitional zone. There is no definite DWI cor relate or area of abnormal enhancement associated with this region. This may reflect a focus of scar . Followup MRI examination in 1 year is recommended to document stability. 2. No additional focal signal abnormality is seen that is suspicious for clinically significant canc er. The extent of the motion artifact on the examination as well as the presence of rectal gas does limit image quality. The neurovasculature is poorly seen. 3. High T1 signal intensity and high T2 signal intensity involving the left proximal adductor muscul ature. This is suspicious for muscular strain and intramuscular lesion cannot be entirely excluded. Recommend evaluation on clinical examination and appropriate clinical followup. POS: OFF
== END 2018-11-21 13:50 | disposition home or self-care (01) ==
LOC: TBSIIMAG 13:49
PROVIDERS: ATTEND Urology
DX: C61 Malignant neoplasm of prostate (principal)
CPT/HCPCS: 72197; A9577

== ENCOUNTER 2020-04-19 13:09 | Outpatient (CLI) | payer MEDICARE, MEDICAID ==
--- NOTE | 2020-04-19 13:46 | CT ---
CT ABDOMEN PELVIS WITHOUT IV CONTRAST: HISTORY:Prostate cancer, malignant neoplasm of prostate COMPARISON: 12/16/2017 DISCLAIMER: Absence of oral and IV contrast reduces the sensitivity of the exam particularly for the evaluation of solid organs and bowel. FINDINGS: Chronic changes in the lung bases are again seen. No free air or free fluid is seen in the abdomen or pelvis. No calcified gallstones are noted. Low-density lesions in the liver, likely cysts are stable. No calculi are seen in the kidneys, ureters or the urinary bladder. No hydroureteronephrosis is noted in either side. Bilateral renal cysts are again seen. The prostate is enlarged. A normal appendix is again noted. There is colonic diverticulosis. Vascular calcifications are presen t without evidence of aneurysmal dilatation of the abdominal aorta. There are degenerative changes in the spine. IMPRESSION: 1. Hepatic and renal cysts. 2. No CT evidence of urinary tract calculi or obstruction 3. Prostatic enlargement 4. Colonic diverticulosis
== END 2020-04-19 13:10 | disposition home or self-care (01) ==
LOC: BICCT 13:09
PROVIDERS: ATTEND Urology
DX: C61 Malignant neoplasm of prostate (principal); N28.1 Cyst of kidney, acquired; K76.89 Other specified diseases of liver; K57.30 Diverticulosis of large intestine without perforation or abscess without bleeding; N40.0 Benign prostatic hyperplasia without lower urinary tract symptoms
CPT/HCPCS: 74176

== ENCOUNTER 2020-12-20 02:49 | Inpatient (IN) | payer MEDICARE, MEDICAID ==
[2020-12-20 03:32] LABS: ALT (SGPT) 56 U/L (8-55); AST (SGOT) 82 U/L (5-34); Albumin 3.8 g/dL (3.4-4.8); Alkaline Phosphatase 116 U/L (40-110); Anion Gap 15 mmol/L (10-20); BUN (Urea Nitrogen) 26 mg/dL (8.4-25.7); Bilirubin, Total 0.8 mg/dL (0.2-1.2); Calc. Creatinine Clearance 0 mL/min (70-130); Calcium 9.5 mg/dL (7.8-10.44); Carbon Dioxide 27 mmol/L (23-31); Chloride 104 mmol/L (98-107); Globulin 3.1 g/dL (2.4-3.5); Glucose 162 mg/dL (83-110); Potassium 4.2 mmol/L (3.5-5.1); Protein, Total 6.9 g/dL (5.8-8.1); Sodium 142 mmol/L (136-145)
[2020-12-20 03:56] LABS: Band 2 % (5-11); Hemoglobin 11.7 g/dL (14.0-18.0); Lymphocytes 65 % (21-51); MDiff Complete? YES; Mean Corpuscular HGB CONC 32.8 g/dL (32.0-36.0); Mean Corpuscular Hemoglobin 32.2 pg (27.0-31.0); Mean Corpuscular Volume 97.9 fL (78.0-98.0); Mean Platelet Volume 9.1 fL (7.4-10.4); Metamyelocyte 1 % (0-0); Monocytes 4 % (0-10); Myelocyte 1 % (0-0); Neutrophil 27 % (42-75); Platelet Count 150 thou/uL (130-400); RBC Distribution Width 13.9 % (11.5-14.5); Red Blood Cell (RBC) Count 3.65 mill/uL (4.70-6.10); White Blood Cell (WBC) Count 9.9 thou/uL (4.8-10.8)
[2020-12-20] MEDS ORDERED: cefTRIAXone\\ROCEPHIN 2 GM VIAL ONE (04:00)
[2020-12-20] MEDS ORDERED: Azithromycin 500 MG VIAL ONE (04:00)
[2020-12-20] MEDS ORDERED: Ondansetron ODT 4 MG TAB PO PRN (06:16)
[2020-12-20] MEDS ORDERED: Acetaminophen 325 MG TAB PO PRN (06:16)
[2020-12-20] MEDS ORDERED: Ondansetron PF 4 MG/2 ML Vial IVP PRN (06:16)
[2020-12-20] MEDS ORDERED: Dextrose 50% Abboject 50 ML SYRINGE SLOW IVP PRN (06:42)
[2020-12-20] MEDS ORDERED: Dextrose 5% in Water 1,000 ML IV PRN (06:42)
[2020-12-20 07:06] VITALS: BMI 24.0
[2020-12-20 07:12] LABS: Lactic Acid 1.5 mmol/L (0.5-2.2)
[2020-12-20] MEDS ORDERED: Carvedilol 25 MG TAB PO SCH (08:00)
[2020-12-20] MEDS: Gabapentin 300 MG CAP PO SCH ×2 (08:12→21:29)
[2020-12-20] MEDS: NIFEdipine XL 30 MG TAB PO SCH ×2 (08:12→21:29)
[2020-12-20] MEDS: Clopidogrel Bisulfate 75 MG TAB PO SCH (08:13)
[2020-12-20] MEDS: methylPREDNISolone Sod Succ 40 MG VIAL IVP SCH (08:13)
[2020-12-20] MEDS: Carvedilol 3.125 MG TAB PO SCH ×2 (08:14→16:46)
[2020-12-20] MEDS ORDERED: Enoxaparin Sodium 40 MG/0.4 ML SYRINGE SC SCH (09:00)
[2020-12-20] MEDS ORDERED: Gabapentin 100 MG CAP PO SCH (09:00)
[2020-12-20] MEDS ORDERED: Non-Formulary Item 1 EACH (Isosorbide Mononitrate [Isosorbide Mononitrate] 10 MG Tablet) PO SCH (09:00)
[2020-12-20] MEDS ORDERED: Non-Formulary Item 1 EACH (Ramipril [Ramipril] 10 MG Capsule) PO SCH (09:00)
[2020-12-20] MEDS ORDERED: NIFEdipine XL 60 MG TAB PO SCH (09:00)
[2020-12-20] MEDS: Ramipril 5 MG CAP PO SCH (09:01)
[2020-12-20] MEDS: HumaLOG 300 UNITS/3 ML VIAL SC PRN (11:48)
[2020-12-20 14:13] LABS: SARS-CoV-2 PCR by NAA Not Detected (NotDetected)
[2020-12-20] MEDS: Atorvastatin Calcium 20 MG TAB PO SCH (21:30)
[2020-12-21] MEDS: Azithromycin 500 MG in Sodium Chloride 0.9% 250 ML 250 ML IVPB SCH (04:17)
[2020-12-21] MEDS: cefTRIAXone\\ROCEPHIN 1 GM in Sodium Chloride 0.9% 100 ML IVPB SCH (04:58)
[2020-12-21 06:57] LABS: Anion Gap 9 mmol/L (10-20); BUN (Urea Nitrogen) 24 mg/dL (8.4-25.7); Calc. Creatinine Clearance 37 mL/min (70-130); Calcium 8.7 mg/dL (7.8-10.44); Carbon Dioxide 29 mmol/L (23-31); Chloride 108 mmol/L (98-107); Glucose 77 mg/dL (83-110); Potassium 4.4 mmol/L (3.5-5.1); Sodium 142 mmol/L (136-145)
[2020-12-21 08:19] LABS: #Lymphocytes 1.4 thou/uL (1.20-3.40); #Monocytes 0.5 thou/uL (0.11-0.59); #Neutrophils 7.9 thou/uL (1.40-6.50); %Basophils 0.3 % (0.0-1.0); %Eosinophils 0.1 % (0.0-10.0); %Monocytes 4.8 % (0.0-10.0); %Neutrophils 80.8 % (42.0-75.0); Hemoglobin 10.1 g/dL (14.0-18.0); MDiff Complete? YES; Mean Corpuscular HGB CONC 33.4 g/dL (32.0-36.0); Mean Corpuscular Hemoglobin 32.3 pg (27.0-31.0); Mean Corpuscular Volume 96.6 fL (78.0-98.0); Ovalocytes SLIGHT = 2-5 cells (100X) (0-1/hpf); Platelet Count 109 thou/uL (130-400); Platelet Morphology Comment Appears Decreased; Polychromasia SLIGHT = 2-3 cells (100X) (0-2/hpf); RBC Distribution Width 13.6 % (11.5-14.5); Red Blood Cell (RBC) Count 3.13 mill/uL (4.70-6.10); White Blood Cell (WBC) Count 9.7 thou/uL (4.8-10.8)
[2020-12-21] MEDS: Enoxaparin Sodium 30 MG/0.3 ML SYRINGE SC SCH (08:31)
[2020-12-21] MEDS: Carvedilol 3.125 MG TAB PO SCH ×2 (08:31→16:49)
[2020-12-21] MEDS: Clopidogrel Bisulfate 75 MG TAB PO SCH (08:31)
[2020-12-21] MEDS: NIFEdipine XL 30 MG TAB PO SCH ×2 (08:32→20:53)
[2020-12-21] MEDS: Gabapentin 300 MG CAP PO SCH ×2 (08:32→20:52)
[2020-12-21] MEDS: Ramipril 5 MG CAP PO SCH (08:32)
[2020-12-21] MEDS: methylPREDNISolone Sod Succ 40 MG VIAL IVP SCH (08:33)
[2020-12-21] MEDS: HumaLOG 300 UNITS/3 ML VIAL SC PRN (16:49)
[2020-12-21] MEDS ORDERED: Polyethylene Glycol 3350 17 GM Packet PO PRN (18:08)
[2020-12-21] MEDS: Docusate 100 MG CAP PO SCH (20:52)
[2020-12-21] MEDS: Atorvastatin Calcium 20 MG TAB PO SCH (20:52)
[2020-12-22] MEDS: Azithromycin 500 MG in Sodium Chloride 0.9% 250 ML 250 ML IVPB SCH (04:12)
[2020-12-22] MEDS: cefTRIAXone\\ROCEPHIN 1 GM in Sodium Chloride 0.9% 100 ML IVPB SCH (05:19)
[2020-12-22] MEDS: Carvedilol 3.125 MG TAB PO SCH (08:20)
[2020-12-22] MEDS: Enoxaparin Sodium 30 MG/0.3 ML SYRINGE SC SCH (08:20)
[2020-12-22] MEDS: Docusate 100 MG CAP PO SCH (08:20)
[2020-12-22] MEDS: Clopidogrel Bisulfate 75 MG TAB PO SCH (08:20)
[2020-12-22] MEDS: NIFEdipine XL 30 MG TAB PO SCH (08:21)
[2020-12-22] MEDS: methylPREDNISolone Sod Succ 40 MG VIAL IVP SCH (08:21)
[2020-12-22] MEDS: Gabapentin 300 MG CAP PO SCH (08:21)
[2020-12-22] MEDS: Ramipril 5 MG CAP PO SCH (08:21)
[2020-12-22] MEDS: HumaLOG 300 UNITS/3 ML VIAL SC PRN (10:42)
[2020-12-22 11:30] VITALS: BP 163/66; TEMP 98.5
== END 2020-12-22 13:58 | disposition home health service (06) | DRG 871 ==
LOC: ERS 02:49 → T4-A 04:37
PROVIDERS: ADMIT Student in an Organized Health Care Education/Training Program; ATTEND Internal Medicine
PROC: 5A09357 Assistance with Respiratory Ventilation, Less than 24 Consecutive Hours, Continuous Positive Airway Pressure (ICD-10-PCS; principal; 2020-12-20)
DX: A41.9 Sepsis, unspecified organism (principal); J15.9 Unspecified bacterial pneumonia; J96.01 Acute respiratory failure with hypoxia; J44.1 Chronic obstructive pulmonary disease with (acute) exacerbation; J44.0 Chronic obstructive pulmonary disease with (acute) lower respiratory infection; E87.2 Acidosis; R65.20 Severe sepsis without septic shock; N18.30 Chronic kidney disease, stage 3 unspecified; Z20.822 Contact with and (suspected) exposure to COVID-19; I25.10 Atherosclerotic heart disease of native coronary artery without angina pectoris; E11.22 Type 2 diabetes mellitus with diabetic chronic kidney disease; I12.9 Hypertensive chronic kidney disease with stage 1 through stage 4 chronic kidney disease, or unspecified chronic kidney disease; E78.5 Hyperlipidemia, unspecified; Z99.81 Dependence on supplemental oxygen; Z95.1 Presence of aortocoronary bypass graft; Z87.442 Personal history of urinary calculi; Z79.899 Other long term (current) drug therapy; Z79.02 Long term (current) use of antithrombotics/antiplatelets; Z79.84 Long term (current) use of oral hypoglycemic drugs
CPT/HCPCS: 36415; 36416; 71045; 80048; 80053; 83605; 83880; 84484; 85025; 87040; 87635; 93005; 94640; 96365; 96367; J0456; J0696; J1650; J1815; J2920; J3490; J7050; J7620; U0003; U0005

== ENCOUNTER 2021-02-27 06:30 | Inpatient (IN) | payer MEDICARE, MEDICAID ==
[2021-02-27] MEDS ORDERED: methylPREDNISolone Sod Succ/PF 125 MG/2 ML VIAL ONE (06:36)
[2021-02-27] MEDS ORDERED: Magnesium 2 GM/50 ML BAG (IN WATER) ONE (06:36)
[2021-02-27 06:57] LABS: #Eosinphils 0.1 thou/uL (0.0-0.7); #Lymphocytes 1.8 thou/uL (1.20-3.40); #Monocytes 0.5 thou/uL (0.11-0.59); #Neutrophils 7.9 thou/uL (1.40-6.50); %Basophils 0.1 % (0.0-1.0); %Eosinophils 0.8 % (0.0-10.0); %Lymphocytes 17.4 % (21.0-51.0); %Monocytes 4.8 % (0.0-10.0); Mean Corpuscular HGB CONC 31.5 g/dL (32.0-36.0); Mean Corpuscular Hemoglobin 30.7 pg (27.0-31.0); Mean Corpuscular Volume 97.2 fL (78.0-98.0); Mean Platelet Volume 8.7 fL (7.4-10.4); Platelet Count 188 thou/uL (130-400); RBC Distribution Width 13.4 % (11.5-14.5); White Blood Cell (WBC) Count 10.3 thou/uL (4.8-10.8)
[2021-02-27 07:15] LABS: ALT (SGPT) 20 U/L (8-55); AST (SGOT) 31 U/L (5-34); Albumin 3.7 g/dL (3.4-4.8); Alkaline Phosphatase 87 U/L (40-110); Anion Gap 12 mmol/L (10-20); BUN (Urea Nitrogen) 14 mg/dL (8.4-25.7); Calc. Creatinine Clearance 0 mL/min (70-130); Calcium 9.1 mg/dL (7.8-10.44); Carbon Dioxide 29 mmol/L (23-31); Chloride 105 mmol/L (98-107); Globulin 2.8 g/dL (2.4-3.5); Glucose 135 mg/dL (83-110); Magnesium 2.1 mg/dL (1.6-2.6); Potassium 4.2 mmol/L (3.5-5.1); Protein, Total 6.5 g/dL (5.8-8.1); Sodium 142 mmol/L (136-145)
[2021-02-27 07:38] LABS: CKMB 2.2 ng/mL (0-6.6)
[2021-02-27] MEDS ORDERED: Albuterol Sulfate 2.5 mg/3 ml Neb ONE (07:58)
[2021-02-27] MEDS ORDERED: Albuterol Sulfate 2.5 mg/0.5 ml Neb ONE (07:58)
[2021-02-27] MEDS ORDERED: Furosemide 20 MG/2 ML VIAL ONE (08:04)
[2021-02-27] MEDS ORDERED: Aspirin Chewable 81 MG TAB ONE (08:04)
[2021-02-27] MEDS ORDERED: Iopamidol-370 76% 500 ML 1 ML ONE (08:48)
[2021-02-27 09:36] LABS: SARS-CoV-2 NAA Rapid Test Not Detected (NotDetected)
[2021-02-27 10:35] LABS: Troponin I 0.071 ng/mL (< 0.028)
[2021-02-27 11:12] VITALS: BMI 24.7
[2021-02-27 13:44] LABS: Troponin I 0.067 ng/mL (< 0.028)
[2021-02-27] MEDS ORDERED: Polyethylene Glycol 3350 17 GM Packet PO PRN (13:49)
[2021-02-27] MEDS ORDERED: Albuterol 200 PUFF (6.7GM INHALER) INH PRN (14:44)
[2021-02-27] MEDS ORDERED: Doxycycline 100 MG CAP PO SCH (15:00)
[2021-02-27] MEDS ORDERED: Clopidogrel Bisulfate 75 MG TAB PO SCH (15:00)
[2021-02-27] MEDS ORDERED: NIFEdipine XL 30 MG TAB PO SCH (15:00)
[2021-02-27] MEDS ORDERED: Enoxaparin Sodium 40 MG/0.4 ML SYRINGE SC SCH (15:00)
[2021-02-27] MEDS: cefTRIAXone\\ROCEPHIN 1 GM in Sodium Chloride 0.9% 100 ML IVPB SCH (16:02)
[2021-02-27 17:42] LABS: Bacteria/HPF None Seen HPF (None Seen); Bilirubin Negative (Negative); Blood, Urine Negative (Negative); Clarity Clear (Clear); Glucose, Urine (Dipstick) 500 mg/dL (Negative); Ketone, Urine Negative (Negative); Leukocyte Negative Leu/uL (Negative); Nitrite Negative (Negative); Protein, Urine (Dipstick) 20 mg/dL (Neg-Trace); RBC/HPF 0-3 HPF (0-3); Specific Gravity, Urine 1.031 (1.002-1.036); Squamous Epithelial None Seen HPF (0-3); Urobilinogen Normal mg/dL (Less than 2); WBC/HPF None Seen HPF (0-3)
[2021-02-27 17:46] LABS: Urine Culture Reflex No No
[2021-02-27] MEDS ORDERED: Dextrose 5% in Water 1,000 ML IV PRN (18:23)
[2021-02-27] MEDS ORDERED: HumaLOG 300 UNITS/3 ML VIAL SC PRN ×2 (18:23→22:20)
[2021-02-27] MEDS ORDERED: Dextrose 50% Abboject 50 ML SYRINGE SLOW IVP PRN (18:23)
[2021-02-27] MEDS: Doxycycline 100 MG CAP PO SCH (21:43)
[2021-02-27] MEDS: Atorvastatin Calcium 20 MG TAB PO SCH (21:43)
[2021-02-27] MEDS: Gabapentin 300 MG CAP PO SCH (21:43)
[2021-02-28] MEDS ORDERED: hydrALAZINE 20 MG/ML VIAL SLOW IVP PRN (00:53)
[2021-02-28 01:30] LABS: Anion Gap 14 mmol/L (10-20); BUN (Urea Nitrogen) 21 mg/dL (8.4-25.7); Calc. Creatinine Clearance 34 mL/min (70-130); Calcium 9.1 mg/dL (7.8-10.44); Carbon Dioxide 28 mmol/L (23-31); Chloride 101 mmol/L (98-107); Glucose 96 mg/dL (83-110); Magnesium 2.4 mg/dL (1.6-2.6); Potassium 3.9 mmol/L (3.5-5.1); Sodium 139 mmol/L (136-145)
[2021-02-28] MEDS ORDERED: Calcium Carbonate 500 MG ChewTAB PO SCH (01:45)
[2021-02-28 01:52] LABS: CKMB 3.5 ng/mL (0-6.6)
[2021-02-28 05:04] LABS: #Monocytes 0.8 thou/uL (0.11-0.59); #Neutrophils 8.5 thou/uL (1.40-6.50); %Basophils 0.2 % (0.0-1.0); %Eosinophils 0.1 % (0.0-10.0); %Lymphocytes 9.8 % (21.0-51.0); %Monocytes 7.8 % (0.0-10.0); Hemoglobin 10.3 g/dL (14.0-18.0); Mean Corpuscular HGB CONC 31.8 g/dL (32.0-36.0); Mean Corpuscular Hemoglobin 30.4 pg (27.0-31.0); Mean Corpuscular Volume 95.5 fL (78.0-98.0); Mean Platelet Volume 9.4 fL (7.4-10.4); Platelet Count 196 thou/uL (130-400); RBC Distribution Width 13.6 % (11.5-14.5); Red Blood Cell (RBC) Count 3.38 mill/uL (4.70-6.10); White Blood Cell (WBC) Count 10.3 thou/uL (4.8-10.8)
[2021-02-28 05:29] LABS: ALT (SGPT) 21 U/L (8-55); AST (SGOT) 25 U/L (5-34); Albumin 3.5 g/dL (3.4-4.8); Alkaline Phosphatase 82 U/L (40-110); Anion Gap 13 mmol/L (10-20); BUN (Urea Nitrogen) 19 mg/dL (8.4-25.7); Bilirubin, Total 0.9 mg/dL (0.2-1.2); Calc. Creatinine Clearance 37 mL/min (70-130); Calcium 9.1 mg/dL (7.8-10.44); Carbon Dioxide 27 mmol/L (23-31); Chloride 104 mmol/L (98-107); Globulin 2.7 g/dL (2.4-3.5); Glucose 107 mg/dL (83-110); Potassium 3.8 mmol/L (3.5-5.1); Protein, Total 6.2 g/dL (5.8-8.1); Sodium 140 mmol/L (136-145)
[2021-02-28 05:49] LABS: CKMB 3.8 ng/mL (0-6.6)
[2021-02-28] MEDS: NIFEdipine XL 30 MG TAB PO SCH (09:06)
[2021-02-28] MEDS: Gabapentin 300 MG CAP PO SCH ×2 (09:06→20:52)
[2021-02-28] MEDS: Doxycycline 100 MG CAP PO SCH ×2 (09:06→20:51)
[2021-02-28] MEDS: Escitalopram Oxalate 10 mg Tablet PO SCH (09:06)
[2021-02-28] MEDS: Clopidogrel Bisulfate 75 MG TAB PO SCH (09:06)
[2021-02-28] MEDS: Enoxaparin Sodium 40 MG/0.4 ML SYRINGE SC SCH (09:07)
[2021-02-28] MEDS ORDERED: Carvedilol 3.125 MG TAB PO SCH ×2 (09:08→09:30)
[2021-02-28] MEDS ORDERED: Furosemide 40 MG/4 ML VIAL SLOW IVP SCH (09:15)
[2021-02-28] MEDS ORDERED: Aspirin 81 mg Enteric Coated Tablet PO SCH (09:15)
[2021-02-28] MEDS ORDERED: Milk Of Magnesia 30 ML UDCUP PO SCH (09:15)
[2021-02-28] MEDS ORDERED: Potassium Chloride 20 MEQ TAB PO SCH (09:15)
[2021-02-28] MEDS: cefTRIAXone\\ROCEPHIN 1 GM in Sodium Chloride 0.9% 100 ML IVPB SCH (14:40)
[2021-02-28] MEDS: Carvedilol 3.125 MG TAB PO SCH (16:08)
[2021-02-28] MEDS: Atorvastatin Calcium 20 MG TAB PO SCH (20:52)
[2021-02-28] MEDS: Senokot S 8.6-50 MG TAB PO SCH (20:53)
[2021-03-01 05:33] LABS: #Eosinphils 0.1 thou/uL (0.0-0.7); #Lymphocytes 0.8 thou/uL (1.20-3.40); #Monocytes 0.6 thou/uL (0.11-0.59); #Neutrophils 6.7 thou/uL (1.40-6.50); %Basophils 0.3 % (0.0-1.0); %Eosinophils 0.7 % (0.0-10.0); %Lymphocytes 10.2 % (21.0-51.0); %Neutrophils 81.8 % (42.0-75.0); Hemoglobin 9.7 g/dL (14.0-18.0); Mean Corpuscular HGB CONC 32.4 g/dL (32.0-36.0); Mean Corpuscular Hemoglobin 30.8 pg (27.0-31.0); Mean Platelet Volume 8.8 fL (7.4-10.4); Platelet Count 190 thou/uL (130-400); RBC Distribution Width 13.4 % (11.5-14.5); Red Blood Cell (RBC) Count 3.15 mill/uL (4.70-6.10); White Blood Cell (WBC) Count 8.1 thou/uL (4.8-10.8)
[2021-03-01 05:34] LABS: Anion Gap 10 mmol/L (10-20); BUN (Urea Nitrogen) 20 mg/dL (8.4-25.7); CRP (Inflammatory) 1.48 mg/dL (= or < 0.5); Calc. Creatinine Clearance 35 mL/min (70-130); Calcium 8.6 mg/dL (7.8-10.44); Carbon Dioxide 30 mmol/L (23-31); Chloride 101 mmol/L (98-107); Glucose 93 mg/dL (83-110); Potassium 3.9 mmol/L (3.5-5.1); Sodium 137 mmol/L (136-145)
[2021-03-01] MEDS: Doxycycline 100 MG CAP PO SCH ×2 (08:17→21:37)
[2021-03-01] MEDS: Ramipril 5 MG CAP PO SCH (08:17)
[2021-03-01] MEDS: Senokot S 8.6-50 MG TAB PO SCH ×2 (08:17→21:37)
[2021-03-01] MEDS: Enoxaparin Sodium 40 MG/0.4 ML SYRINGE SC SCH (08:17)
[2021-03-01] MEDS: Potassium Chloride 20 MEQ TAB PO SCH (08:18)
[2021-03-01] MEDS: Clopidogrel Bisulfate 75 MG TAB PO SCH (08:18)
[2021-03-01] MEDS: Escitalopram Oxalate 10 mg Tablet PO SCH (08:18)
[2021-03-01] MEDS: Gabapentin 300 MG CAP PO SCH ×2 (08:18→21:38)
[2021-03-01] MEDS: Aspirin 81 mg Enteric Coated Tablet PO SCH (08:18)
[2021-03-01] MEDS: NIFEdipine XL 30 MG TAB PO SCH (08:18)
[2021-03-01] MEDS: Furosemide 40 MG/4 ML VIAL SLOW IVP SCH (08:19)
[2021-03-01] MEDS: Carvedilol 3.125 MG TAB PO SCH (08:19)
[2021-03-01] MEDS ORDERED: Carvedilol 3.125 MG TAB PO SCH ×2 (08:33→10:00)
[2021-03-01] MEDS ORDERED: Non-Formulary Item 1 EACH (Ramipril [Ramipril] 10 MG Capsule) PO SCH (09:00)
[2021-03-01] MEDS ORDERED: Carvedilol 6.25 MG TAB PO SCH (09:00)
[2021-03-01] MEDS: Carvedilol 6.25 MG TAB PO SCH ×2 (10:12→17:00)
[2021-03-01] MEDS: Spironolactone 25 MG TAB PO SCH (10:16)
[2021-03-01] MEDS: cefTRIAXone\\ROCEPHIN 1 GM in Sodium Chloride 0.9% 100 ML IVPB SCH (17:00)
[2021-03-01] MEDS: Atorvastatin Calcium 20 MG TAB PO SCH (21:38)
[2021-03-02 05:32] LABS: #Eosinphils 0.2 thou/uL (0.0-0.7); #Lymphocytes 0.9 thou/uL (1.20-3.40); #Monocytes 0.6 thou/uL (0.11-0.59); #Neutrophils 4.5 thou/uL (1.40-6.50); %Basophils 0.2 % (0.0-1.0); %Eosinophils 2.9 % (0.0-10.0); %Lymphocytes 14.1 % (21.0-51.0); %Monocytes 9.1 % (0.0-10.0); %Neutrophils 73.6 % (42.0-75.0); Hemoglobin 9.5 g/dL (14.0-18.0); Mean Corpuscular HGB CONC 31.2 g/dL (32.0-36.0); Mean Corpuscular Hemoglobin 30.2 pg (27.0-31.0); Mean Corpuscular Volume 96.6 fL (78.0-98.0); Mean Platelet Volume 8.8 fL (7.4-10.4); Platelet Count 190 thou/uL (130-400); RBC Distribution Width 13.4 % (11.5-14.5); Red Blood Cell (RBC) Count 3.16 mill/uL (4.70-6.10); White Blood Cell (WBC) Count 6.1 thou/uL (4.8-10.8)
[2021-03-02 05:50] LABS: Anion Gap 7 mmol/L (10-20); BUN (Urea Nitrogen) 24 mg/dL (8.4-25.7); Calc. Creatinine Clearance 31 mL/min (70-130); Calcium 8.5 mg/dL (7.8-10.44); Carbon Dioxide 34 mmol/L (23-31); Chloride 101 mmol/L (98-107); Glucose 87 mg/dL (83-110); Magnesium 1.9 mg/dL (1.6-2.6); Potassium 4.1 mmol/L (3.5-5.1); Sodium 138 mmol/L (136-145)
[2021-03-02] MEDS: NIFEdipine XL 30 MG TAB PO SCH (08:52)
[2021-03-02] MEDS: Spironolactone 25 MG TAB PO SCH (08:53)
[2021-03-02] MEDS: Carvedilol 6.25 MG TAB PO SCH ×2 (08:53→17:59)
[2021-03-02] MEDS: Ramipril 5 MG CAP PO SCH (08:53)
[2021-03-02] MEDS: Potassium Chloride 20 MEQ TAB PO SCH (08:53)
[2021-03-02] MEDS: Escitalopram Oxalate 10 mg Tablet PO SCH (08:53)
[2021-03-02] MEDS: Doxycycline 100 MG CAP PO SCH ×2 (08:54→20:53)
[2021-03-02] MEDS: Aspirin 81 mg Enteric Coated Tablet PO SCH (08:54)
[2021-03-02] MEDS: Senokot S 8.6-50 MG TAB PO SCH ×2 (08:54→20:54)
[2021-03-02] MEDS: Furosemide 40 MG/4 ML VIAL SLOW IVP SCH (08:54)
[2021-03-02] MEDS: Enoxaparin Sodium 40 MG/0.4 ML SYRINGE SC SCH (08:54)
[2021-03-02] MEDS: Clopidogrel Bisulfate 75 MG TAB PO SCH (08:54)
[2021-03-02] MEDS: Gabapentin 300 MG CAP PO SCH ×2 (08:54→20:54)
[2021-03-02] MEDS: Atorvastatin Calcium 20 MG TAB PO SCH (20:54)
[2021-03-03 05:35] LABS: Anion Gap 11 mmol/L (10-20); BUN (Urea Nitrogen) 26 mg/dL (8.4-25.7); Calc. Creatinine Clearance 32 mL/min (70-130); Calcium 8.9 mg/dL (7.8-10.44); Carbon Dioxide 31 mmol/L (23-31); Chloride 101 mmol/L (98-107); Glucose 92 mg/dL (83-110); Magnesium 1.8 mg/dL (1.6-2.6); Potassium 3.7 mmol/L (3.5-5.1); Sodium 139 mmol/L (136-145)
[2021-03-03] MEDS ORDERED: Furosemide 40 MG TAB PO SCH (07:30)
[2021-03-03] MEDS: Clopidogrel Bisulfate 75 MG TAB PO SCH (08:25)
[2021-03-03] MEDS: Ramipril 5 MG CAP PO SCH (08:25)
[2021-03-03] MEDS: Aspirin 81 mg Enteric Coated Tablet PO SCH (08:26)
[2021-03-03] MEDS: NIFEdipine XL 30 MG TAB PO SCH (08:26)
[2021-03-03] MEDS: Carvedilol 6.25 MG TAB PO SCH (08:27)
[2021-03-03] MEDS: Senokot S 8.6-50 MG TAB PO SCH (08:27)
[2021-03-03] MEDS: Doxycycline 100 MG CAP PO SCH (08:27)
[2021-03-03] MEDS: Spironolactone 25 MG TAB PO SCH (08:27)
[2021-03-03] MEDS: Gabapentin 300 MG CAP PO SCH (08:28)
[2021-03-03] MEDS: Potassium Chloride 20 MEQ TAB PO SCH (08:28)
[2021-03-03] MEDS: Escitalopram Oxalate 10 mg Tablet PO SCH (08:29)
[2021-03-03] MEDS ORDERED: Enoxaparin Sodium 30 MG/0.3 ML SYRINGE SC SCH (09:00)
[2021-03-03 11:19] VITALS: BP 141/60; TEMP 98.2
== END 2021-03-03 12:20 | disposition home or self-care (01) | DRG 280 ==
LOC: ERS 06:30 → 2NO 09:29
PROVIDERS: ADMIT Internal Medicine; ATTEND Family Medicine
DX: I13.0 Hypertensive heart and chronic kidney disease with heart failure and stage 1 through stage 4 chronic kidney disease, or unspecified chronic kidney disease (principal); I50.33 Acute on chronic diastolic (congestive) heart failure; I21.A1 Myocardial infarction type 2; Z20.822 Contact with and (suspected) exposure to COVID-19; J96.01 Acute respiratory failure with hypoxia; N17.9 Acute kidney failure, unspecified; I47.2 Ventricular tachycardia; J45.901 Unspecified asthma with (acute) exacerbation; I47.1 Supraventricular tachycardia; J84.9 Interstitial pulmonary disease, unspecified; I25.10 Atherosclerotic heart disease of native coronary artery without angina pectoris; N40.0 Benign prostatic hyperplasia without lower urinary tract symptoms; N18.30 Chronic kidney disease, stage 3 unspecified; E78.5 Hyperlipidemia, unspecified; N28.1 Cyst of kidney, acquired; K76.89 Other specified diseases of liver; K59.00 Constipation, unspecified; E11.22 Type 2 diabetes mellitus with diabetic chronic kidney disease; K21.9 Gastro-esophageal reflux disease without esophagitis; E11.51 Type 2 diabetes mellitus with diabetic peripheral angiopathy without gangrene; I44.0 Atrioventricular block, first degree; F32.9 Major depressive disorder, single episode, unspecified; J44.9 Chronic obstructive pulmonary disease, unspecified; I08.1 Rheumatic disorders of both mitral and tricuspid valves; Z79.899 Other long term (current) drug therapy; Z95.1 Presence of aortocoronary bypass graft; Z79.02 Long term (current) use of antithrombotics/antiplatelets; Z79.84 Long term (current) use of oral hypoglycemic drugs; Z87.891 Personal history of nicotine dependence
CPT/HCPCS: 0240U; 36415; 36416; 71045; 74177; 80048; 80053; 81001; 82553; 83690; 83735; 83880; 84484; 85025; 85379; 86140; 87040; 93005; 93306; 93798; 94640; 94644; 94660; 94760; 96374; 96375; J0360; J0696; J1650; J1815; J1940; J2930; J3475; J3490; J7611; J7620; Q9967